=== PATIENT | female | born 1975 | race Two or more races ===

== ENCOUNTER 2024-04-02 11:26 | Outpatient (AMB) | payer OTHER, SELFPAY ==
--- NOTE | 2024-04-02 11:36 | A.OFFPC_ITS ---
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 Chain Offbearer Required: Yes Chain Offbearer Name: Daughter Accompanied by: Daughter Allergies Seasonal Allergies Allergy (Verified 04/02/24 11:57) Itchy Eyes Medication List - Last Reconciled 04/02/24 by Vianey Song, [facility] azelastine 0.05% 1 drp ophthalmic (eye) BID fluticasone propionate 50 mcg/actuation 2 sprays intranasal DAILY omeprazole 20 mg PO DAILY Tobacco use date assessed: 04/02/24 Dental Screening Dental Screen Date: 04/02/24 Did you have a dental visit in the last 12 months?: Yes Did you have a dental problem in the last 6 months where you did not have access to dental care?: No Was dental information given to patient?: Patient has dentist HPI HPI Comments History of Present Illness Details 48 y/o F with GERD, seasonal allergies, MDD, constipation, HPV Surgery: hysterectomy 2021 Health Maintenance: Colon thinks done about 1 year ago at [facility]. Unsure if it was normal or not. Mammo reports done at [facility] in [place] < 1 year ago. DEXA has never had one done. Will order today. Pap due, needs new referral. Placed today. Tdap today. 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 This started a long time ago . Alleviating factors include exercises. Exacerbating factors include constipation. Denies hx of kidney stones. Reports normal urination. Using meds in the past that helped in the past, but unsure of name. Admits miralax did provide benefit. [facility] Medical History (Updated 04/02/24 @ 13:32 by GLEN Knight-DAVIS) Acid reflux Surgical History (Updated 04/02/24 @ 11:50 by Lorie Bedoya [facility]) H/O: hysterectomy Family History (Updated 04/02/24 @ 11:53 by YOJANA Rose) Mother Diabetes Lung cancer Father High cholesterol Diabetes Family/Other High blood pressure High cholesterol Diabetes Social History Household Members: Family Both parents involved: No Caregiver staying overnight: No Housing: House Are you a primary primary care nurse practitioner to a significant other at home: No Do you presently have visiting nurse or other home services: No 75 years or older and lives alone: No Alcohol intake: current Alcohol intake frequency: holidays/special occasions only Alcohol type: wine and other Patient Tobacco Use Status: Never used Tobacco e-Cigarette/Vaping Use: Never Used Second Hand Smoke Exposure: No service: No Current occupational status: employed Current occupation: [employer]i @ [email or web address]/ [employer] at [employer] Cognitive needs: No Hearing needs: No Vision needs: Yes Questionnaire PHQ-9 Over the last 2 weeks, how often have you been bothered by any of the following problems? 1. Little interest or pleasure in doing things: not at all 2. Feeling down, depressed, or hopeless: not at all 3. Trouble falling or staying asleep, or sleeping too much: more than half the days 4. Feeling tired or having little energy: more than half the days 5. Poor appetite or overeating: several days 6. Feeling bad about yourself - or that you are a failure or have let yourself or your family down: not at all 7. Trouble concentrating on things, such as reading the newspaper or watching television: several days 8. Moving or speaking so slowly that other people could have noticed. Or the opposite - being so fidgety or restless that you have been moving around a lot more than usual: not at all 9. Thoughts that you would be better off or of hurting yourself in some way: not at all Total score: 6 Depression Screening Interpretation: Positive Depression Screening Follow-up: Existing condition Depression Screening Done: Yes 65063 - PHQ-9 Billing: Yes Source: Developed by Drs. Elmo Potts, Joanne Funes, Calos Gordon and colleagues, with an educational elan from [employer]. Thrive Questionnaire Date Thrive assessed: 04/02/24 I am a: Patient What is your living situation today?: I have a steady place to live Within the past 12 months, did the food you bought not last and you didn't have the money to get more?: Never true Within the past 12 months, did you worry whether your food would run out before you got money to buy more?: Never true Do you have trouble paying for medicines?: No Do you have trouble getting transportation to medical appointments?: No Do you have trouble paying your heating and electricity bill?: No Do you have trouble taking care of your child, family member or friend?: No Do you have trouble with day-to-day activities such as bathing, preparing meals, shopping, managing finances, etc.?: No Are you currently unemployed and looking for a job?: No Are you interested in more education?: No Please select the resources that you would like help with: None Currently or been in a relationship where the following occur: no concerns reported THRIVE Score: 0 AUDIT C Alcohol Use Questionnaire (AUDIT-C) 1. How often do you have a drink containing alcohol?: Monthly or less 2. How many drinks containing alcohol do you have on a typical day when you are drinking?: 1 or 2 3. How often do you have six or more drinks on one occasion?: Never Total Score: 1 Score Reviewed/Action Taken: Yes DAYANARA-7 AMB Questionnaire DAYANARA-7 Date DAYANARA - 7 assessed: 04/02/24 Feeling nervous, anxious, or on edge: 0 = Not at all Not being able to stop or control worryin = Not at all Worrying too much about different things: 0 = Not at all Trouble relaxin = Several days Being so restless that it is hard to sit still: 0 = Not at all Becoming easily annoyed or irritable: 0 = Not at all Feeling afraid as if something awful might happen: 0 = Not at all Total DAYANARA-7 score (0-4 normal; 5-9 mild; 10-14 moderate; 15-21 severe): 1 Source: Developed by Drs. Elmo Potts, Joanne Funes, Calos Gordon and colleagues, with an educational elan from [employer]. DAYANARA-7 Assessment Billing DAYANARA-7 Assessment Tool: DAYANARA-7 Assessment 53746 Review of Systems Const Details: Constitutional: Denies fever. Skin: Denies rash. Eye: Denies eye pain. ENMT: Denies sore throat Respiratory: Denies shortness of breath and cough. Gastrointestinal: Denies nausea, vomiting Cardiovascular: Denies chest pain and syncope. Genitourinary: Denies dysuria. Musculoskeletal: Denies extremity pain. Neurologic: Denies confusion, and weakness. Psychiatric: Denies suicidal thoughts and substance abuse. Allergy/ Immunologic: Denies impaired immunity. Physical exam (Primary Care) Vital Signs: Last Vital Signs Temp 97.5 F 04/02/24 11:37 Pulse 67 04/02/24 11:37 Resp 14 04/02/24 11:37 BP 126/64 04/02/24 11:37 Pulse Ox 99 04/02/24 11:37 Oxygen Delivery Method Room Air 04/02/24 11:37 BMI result Body Mass Index 28.9 BMI Assessment/Plan discussion: High BMI High, discussed plan: lifestyle Tobacco/Smoking Status: Tobacco use Status Tobacco use date assessed 04/02/24 04/02/24 11:54 Patient Tobacco Use Status Never used Tobacco 04/02/24 11:54 e-Cigarette/Vaping Use Never Used 04/02/24 11:54 PHQ-9: PHQ-9 Score PHQ-9: Total score 6 04/02/24 12:38 Depression Screening Interpretation: Positive Depression Screening Follow-up: Existing condition Thrive Assessment: Date of Thrive Assessment Date Thrive assessed 04/02/24 04/02/24 11:54 Currently or been in a relationship where the following occur: no concerns reported Advance Care Planning discussion: Exists, not on file Date of discussion: 04/02/24 Who was present: Self and daughter Forms completed: Health Care Proxy and MOLST Time spent: 1-15 minutes, not on file Actual minutes spent: 5 Did not discuss due to Cultural/Spiritual beliefs: Yes Const Other: General: Well developed, well nourished, in no acute distress. Appears stated age. Accompanied by daughter who helps with language barrier Head: Normocephalic, atraumatic. Eyes: Pupils are equal, round and reactive to light and accommodation. Conjunctivae are clear. Vision grossly normal. Ears: TMs with mild congestion bilat, EACS WNL Nose: Patent, without discharge. Turbinates pale and edematous bilat Mouth: There are no ulcers or lesions noted. No inflammation, no plaques nor exudates. Postnasal drip Neck: Supple, no adenopathy or thyromegaly. Lungs: Clear to auscultation bilaterally. No rales, rhonchi or wheeze noted. Good air flow in all siu. Heart: Regular rate and rhythm. No murmurs, click, rubs or gallops are noted. Abdomen: Bowel sounds present in all quadrants. The abdomen is soft,with no masses or organomegaly noted. No hernias are noted. Tender without rebound 2 left lower quadrant Musculoskeletal: Joints are nontender, without swelling, redness, or effusions. Range of motion is observed to be normal. Pulses: Peripheral pulses are equal and palpable bilaterally. Spinal exam within normal limits, CVAT bilat negative Extremities: No clubbing, cyanosis nor edema is noted. hairless lower ext half way down lower legs bilat Neurologic: Gait and station normal. Cranial Nerves 2-12 intact. Motor strength grossly symmetrical and intact. No sensory loss. Balance normal. Skin: No rashes, ulcers, or lesions noted. Turgor is good. Skin color is good. Hair and nails are without abnormalities. Psych: Normal eye contact, affect and mood appropriate, and normal interactions. Patient is alert and appropriate to context. Extremities: No clubbing, cyanosis or edema. Immunizations Boostrix Tdap 2.5 Lf unit-8 mcg-5 Lf/0.5 mL intramuscular syringe Performing Provider: JAYASHREE Knight Performing Location: 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 Code(s): E89.40 - Asymptomatic postprocedural ovarian failure; Z90.710 - Acquired absence of both cervix and uterus (3) Laboratory exam ordered as part of routine general medical examination: Code(s): Z00.00 - Encounter for general adult medical examination without abnormal findings (4) Seasonal allergies: Comment: Refill sent in on his saline, Flonase. New prescription for Zyrtec. Code(s): J30.2 - Other seasonal allergic rhinitis (5) BMI 29.0-29.9,adult: Comment: Lifestyle modifications. Code(s): Z68.29 - Body mass index [BMI] 29.0-29.9, adult (6) Constipation: Comment: The constipation is what seems to be causing her back pain, left lower quadrant pain. She has successfully used MiraLax in the past. I have reordered this. One capful mixed with 8 oz of fluid to be taken at bedtime. Titrate to effect. Decrease if diarrhea. If abdominal pain or back pain return after the constipation is treated advised that she return to the office for further evaluation and treatment. Code(s): K59.00 - Constipation, unspecified Qualifiers: Constipation type: slow transit constipation Qualified Code(s): K59.01 - Slow transit constipation (7) Acid reflux: Comment: Was well controlled on omeprazole. New prescription has been sent for omeprazole 20 mg p.o. daily. Code(s): K21.9 - Gastro-esophageal reflux disease without esophagitis Qualifiers: Esophagitis presence: without esophagitis Qualified Code(s): K21.9 - Gastro-esophageal reflux disease without esophagitis (8) PVD (peripheral vascular disease): Comment: based on clinical exam of hairless BLE, skin intact, monitor skin integrity. Normal Pedal pulses. BP at goal w/o meds. Check lipid profile. Code(s): I73.9 - Peripheral vascular disease, unspecified Orders: Orders Hemoglobin A1c Today E89.40 - Asymptomatic postprocedural ovarian failure, Z00.00 - Encounter for general adult medical examination without abnormal findings, Z90.710 - Acquired absence of both cervix and uterus Microalbumin, Random (w Creat) Today E89.40 - Asymptomatic postprocedural ovarian failure, Z00.00 - Encounter for general adult medical examination without abnormal findings, Z90.710 - Acquired absence of both cervix and uterus TDaP Immunization Today Z23 - Encounter for immunization XR DEXA appendicular skeleton Today E89.40 - Asymptomatic postprocedural ovarian failure, Z90.710 - Acquired absence of both cervix and uterus Lipid Panel Today E89.40 - Asymptomatic postprocedural ovarian failure, Z00.00 - Encounter for general adult medical examination without abnormal findings, Z90.710 - Acquired absence of both cervix and uterus Comprehensive [place]. Panel Fast Today E89.40 - Asymptomatic postprocedural ovarian failure, Z00.00 - Encounter for general adult medical examination without abnormal findings, Z90.710 - Acquired absence of both cervix and uterus TSH reflex Free T4 Today E89.40 - Asymptomatic postprocedural ovarian failure, Z00.00 - Encounter for general adult medical examination without abnormal findings, Z90.710 - Acquired absence of both cervix and uterus Vitamin D 1,25 dihydroxy Today E89.40 - Asymptomatic postprocedural ovarian failure, Z00.00 - Encounter for general adult medical examination without abnormal findings, Z90.710 - Acquired absence of both cervix and uterus Referrals [facility] Referral Z12.4 - Encounter for screening for malignant neoplasm of cervix Medications: New omeprazole 20 mg PO DAILY 90 caps 1RF azelastine 0.05% 1 drp ophthalmic (eye) BID 6 mL 4RF fluticasone propionate 50 mcg/actuation administer into each nostril 2 sprays intranasal DAILY 16 grams 6RF cetirizine (Allergy Relief (cetirizine)) 10 mg PO DAILY PRN 90 tabs 1RF allergy symptoms polyethylene glycol 3350 (Miralax) 17 grams PO DAILY 119 grams 8RF Patient Instructions: Health screenings for women You should visit your health care provider from time to time, even if you are healthy. The purpose of these visits is to: Screen for medical issues Assess your risk for future medical problems Encourage a healthy lifestyle Update vaccinations and other preventive care services Help you get to know your provider in case of an illness Information Even if you feel fine, you should still see your provider for regular checkups. These visits can help you avoid problems in the future. For example, the only way to find out if you have high blood pressure is to have it checked regularly. High blood sugar and high cholesterol levels also may not have any symptoms in the early stages. A simple blood test can check for these conditions. There are specific times when you should see your provider or receive specific health screenings. The [place] Preventive Services Task Force publishes a list of recommended screenings. Below are screening guidelines for women ages 18 to 39. BLOOD PRESSURE SCREENING Your blood pressure should be checked at least once every 3 to 5 years if: Your blood pressure is in the normal range (top number less than 120 mm Hg and bottom number less than 80 mm Hg) You don't have risk factors for high blood pressure Ask your provider if you need your blood pressure checked more often if: The top number is 120 to 129 mm Hg or the bottom number is 70 to 79 mm Hg You have diabetes, heart disease, kidney problems, are overweight, or have certain other health conditions You have a first-degree relative with high blood pressure You are Black You had high blood pressure during a If the top number is 130 mm Hg or greater or the bottom number is 80 mm Hg or greater, this is considered stage 1 hypertension. Schedule an appointment with your provider to learn how you can reduce your blood pressure. Watch for blood pressure screenings in your area. Ask your provider if you can stop in to have your blood pressure checked. BREAST CANCER SCREENING Experts do not agree about the benefits of breast self-exams in finding breast cancer or saving lives. Talk to your provider about what is best for you. A screening mammogram is not recommended for most women under age 40. Your provider may discuss and recommend mammograms, MRI scans, or ultrasounds if you have an increased risk for breast cancer, such as: A mother or sister who had breast cancer at a young age (most often starting screening earlier than the age the close relative was diagnosed) You carry a high-risk genetic marker CERVICAL CANCER SCREENING Cervical cancer screening should start at age 21 years unless your provider advises otherwise. After the first test: Women ages 21 through 29 should have a Pap test every 3 years. Exoprts do not agree on whether HPV testing is recommended for this age group. Women ages 30 through 65 should be screened with either a Pap test every 3 years or the HPV test every 5 years or both tests every 5 years (called cotesting ). Women who have been treated for precancer (cervical dysplasia) should continue to have Pap tests for 20 years after treatment or until age 65, whichever is longer. If you have had your uterus and cervix removed (total hysterectomy), and you have not been diagnosed with cervical cancer or precancer (high grade cervical neoplasia), you do not need cervical cancer screening. CHOLESTEROL SCREENING Cholesterol screening should begin at: Age 45 for women with no known risk factors for coronary heart disease Age 20 for women with known risk factors for coronary heart disease Repeat cholesterol screening should take place: Every 5 years for women with normal cholesterol levels More often if changes occur in lifestyle (including weight gain and diet) More often if you have diabetes, heart disease, kidney problems, or certain other conditions DIABETES SCREENING You should be screened for diabetes starting at age 35 and then repeated every 3 years if you have no risk factors for diabetes. Screening may need to start earlier and be repeated more often if you have other risk factors for diabetes, such as: You have a first degree relative with diabetes. You are overweight or have obesity. You have high blood pressure, prediabetes, or a history of heart disease. Screening for diabetes should be done if you are planning to become and you are overweight and have other risk factors such as high blood pressure. DENTAL EXAM Go to the dentist once or twice every year for an exam and cleaning. Your dentist will evaluate if you need more frequent visits. EYE EXAM Have an eye exam every 5 to 10 years before age 40. If you have vision problems, have an eye exam every 2 years or more often if recommended by your provider. You should have an eye exam that includes an examination of your retina (back of your eye) at least every year if you have diabetes. IMMUNIZATIONS Commonly needed vaccines include: Flu shot: get one every year. COVID-19 vaccine: ask your provider what is best for you. Tetanus-diphtheria and acellular pertussis (Tdap) vaccine: have one at or after age 19 as one of your tetanus-diphtheria vaccines if you did not receive it as an adolescent. Tetanus-diphtheria: have a booster (or Tdap) every 10 years. Varicella vaccine: receive 2 doses if you never had chickenpox or the varicella vaccine. Hepatitis B vaccine: receive 2, 3, or 4 doses, depending on your exact circumstances. Measles, mumps, and rubella (MMR) vaccine: receive 1 to 2 doses if you are not already immune to MMR. Your provider can tell you if you are immune. Ask your provider about the human papillomavirus (HPV) vaccine if: You have not received the HPV vaccine in the past You have not completed the full vaccine series (you should catch up on this shot) Ask your provider if you should receive other immunizations if you have certain health problems that increase your risk for some diseases such as pneumonia. INFECTIOUS DISEASE SCREENING Women who are sexually active should be screened for chlamydia and gonorrhea up until age 25. Women 25 years and older should be screened for chlamydia and gonorrhea if at high risk. Screening for hepatitis C: All adults ages 18 to 79 should get a one-time test for hepatitis C. people should be screened at every . Screening for human immunodeficiency virus (HIV): All people ages 15 to 65 should get a one-time test for HIV. Depending on your lifestyle and medical history, you may also need to be screened for infections such as syphilis and HIV, as well as other infections. PHYSICAL EXAM All adults should visit their provider from time to time, even if they are healthy. The purpose of these visits is to: Screen for disease Assess your risk of future medical problems Encourage a healthy lifestyle Update your vaccinations and other preventive care services Maintain a relationship with a provider in case of an illness Your height, weight, and BMI should be checked at every exam. During your exam, your provider may ask you about: Depression and anxiety Diet and exercise Alcohol and tobacco use Safety issues, such as using seat belts, smoke detectors, and intimate partner violence Your medicines and risk for interactions SKIN SELF-EXAM Your provider may check your skin for signs of skin cancer, especially if you're at high risk, such as if you: Have had skin cancer before Have close relatives with skin cancer Have a weakened immune system OTHER SCREENING Talk with your provider about colon cancer screening if you have a strong family history of colon cancer or polyps, or if you have had inflammatory bowel disease or polyps yourself. Routine bone density screening of women under 40 is not recommended. Review Patient declined Mammogram: 04/02/24 Patient declined Colonoscopy: 04/02/24 Coding Level of Care Code New Pt Prev Care 40-64y(31576) Diagnoses Encounter for general adult medical examination without abnormal findings Z00.00 Post hysterectomy menopause E89.40; Z90.710 Laboratory exam ordered as part of routine general medical examination Z00.00 Seasonal allergies J30.2 BMI 29.0-29.9,adult Z68.29 Slow transit constipation K59.01 Constipation type: slow transit constipation Gastroesophageal reflux disease without esophagitis K21.9 Esophagitis presence: without esophagitis PVD (peripheral vascular disease) I73.9 Additional Codes DAYANARA-7 Assessment Billing - DAYANARA-7 Assessment Tool: DAYANARA-7 Assessment 95680 ([id number]) Vital Signs *Quality* - Advance Care Planning discussion: Exists, not on file ([id number]) Vital Signs *Quality* - Time spent: 1-15 minutes, not on file ([id number]) Vital Signs *Quality* - Did not discuss due to Cultural/Spiritual beliefs: Yes ([id number])
[2024-04-02 11:37] VITALS: BP 126/64; PULSE 67; RESP 14; TEMP 36.4; O2SAT 99; BMI 28.9
== END 2024-04-02 12:57 | disposition home or self-care (01) ==
PROVIDERS: Visit Provider Nurse Practitioner Family
DX: Z00.00 Encounter for general adult medical examination without abnormal findings (principal); E89.40 Asymptomatic postprocedural ovarian failure; I73.9 Peripheral vascular disease, unspecified; Z23 Encounter for immunization; Z68.29 Body mass index [BMI] 29.0-29.9, adult; Z90.710 Acquired absence of both cervix and uterus; J30.2 Other seasonal allergic rhinitis; K59.01 Slow transit constipation; K21.9 Gastro-esophageal reflux disease without esophagitis
CPT/HCPCS: 1124F; 90471; 90715; 99386

== ENCOUNTER 2024-04-02 12:35 | Outpatient (REF) | payer OTHER, SELFPAY ==
[2024-04-02 15:16] LABS: Estimated Average Glucose 114 mg/dL; Hemoglobin A1c % 5.6 % (<6.0)
[2024-04-02 15:31] LABS: Creatinine Urine 86.76 mg/dL; Microalbum/Creatinine Ratio Ur 6.9 ug/mg cr (<30)
[2024-04-02 15:40] LABS: Alanine Aminotransferase 23 U/L (0-31); Albumin Level 4.6 g/dL (3.5-5.0); Alkaline Phosphatase 62 U/L (39-117); Anion Gap 16 (12-20); Aspartate Amino Transferase 23 U/L (5-31); Bilirubin Total 0.5 mg/dL (0.0-1.0); Blood Urea Nitrogen 12 mg/dL (9-16); Calcium 9.8 mg/dL (8.4-10.2); Carbon Dioxide 26 mmol/L (22-29); Chloride 104 mmol/L (96-108); Cholesterol 233 mg/dL (<200); Estimated Glomerular Filt Rate > 60; Glucose Fasting 80 mg/dL (60-99); HDL Cholesterol 58 mg/dL (>40); LDL Cholesterol Calculated 143 mg/dL (<100); Sodium 142 mmol/L (135-145); Total Protein 8.6 g/dL (6.5-8.0); Triglycerides 163 mg/dL (<150)
[2024-04-02 15:47] LABS: TSH reflex Free T4 0.58 uIU/mL (0.32-4.0)
[2024-04-07 14:19] LABS: VITAMIN D (1,25 OH) D3 37 pg/mL; Vit D (1,25-Dihydroxy) Total 37 pg/mL (18-72); Vitamin D (1,25 OH) D2 <8 pg/mL
== END 2024-04-02 12:36 | disposition home or self-care (01) ==
LOC: HO.WFDLDS 12:35
PROVIDERS: Visit Provider Nurse Practitioner Family
DX: Z00.00 Encounter for general adult medical examination without abnormal findings (principal); Z13.6 Encounter for screening for cardiovascular disorders; E89.40 Asymptomatic postprocedural ovarian failure; Z90.710 Acquired absence of both cervix and uterus
CPT/HCPCS: 36415; 80053; 80061; 82043; 82570; 82652; 83036; 84443

== ENCOUNTER 2024-04-07 10:46 | Outpatient (REF) | payer OTHER, SELFPAY ==
--- NOTE | ~2024-04-07 | MM_ITS ---
EXAMINATION: BONE DENSITOMETRY CLINICAL INDICATION: Asymptomatic menopausal state. COMPARISON: This is the patient's baseline examination. TECHNIQUE: Using a [employer] DXA System (software version: 13.1) manufactured by [employer], dual-energy x-ray absorptiometry was performed of the lumbar spine and left hip. The images are of good technical quality. Summary results are attached. FINDINGS: LEFT FEMUR, NECK: BMD 1.053 g/cm2, Z-score 0.9, T-score 0.1, normal. LEFT FEMUR, TOTAL: BMD 1.084 g/cm2, Z-score 1.0, T-score 0.6, normal. AP SPINE L1-L4: BMD 1.088 g/cm2, Z-score -0.4, T-score -0.8, normal. IDENTIFIED RISK FACTORS: Menopause, hysterectomy, bilateral oophorectomy. HISTORY OF FRACTURE: None listed. MEDICATIONS: None listed. MM/XR DEXA axial skeleton IMPRESSION: 1. DIAGNOSIS: Normal bone density based on the lowest T-score value of -0.8 in the lumbar spine applying World Health Organization criteria. 2. 10-YEAR FRACTURE RISK PREDICTION, FRAX: According to the guidelines, FRAX calculation should only be performed on patients in the osteopenia bone density category. Therefore, FRAX was not performed on this patient. 3. Treatment Recommendations: NOF guidelines recommend consideration for treatment in postmenopausal women and men age 50 and older presenting with the following: -A hip or vertebral (clinical or morphometric) fracture. -T-score less than or equal to -2.5 at the femoral neck or spine after appropriate evaluation to exclude secondary causes. -Low bone mass at the hip or spine and a 10-year fracture probability by FRAX of greater than or equal to 3% for hip fracture or greater than or equal to 20% for major osteoporotic fracture based on the [place] adapted WHO algorithm. 4. Other Recommendations: All treatment decisions require clinical judgment and consideration of individual patient factors, including patient preferences, comorbidities, previous drug use, risk factors not captured in the FRAX model (e.g. frailty, falls, vitamin D deficiency, increased bone turnover, interval significant decline in bone density) and possible under or overestimation of fracture risk by FRAX. FUTURE SCAN RECOMMENDATION: People with diagnosed cases of osteoporosis or at high risk for fracture should have regular bone mineral density tests. For patients eligible for Medicare, routine testing is allowed once every 2 years. The testing frequency can be increased to one year for patients who have rapidly progressing disease, those who are receiving or discontinuing medical therapy to restore bone mass, or have additional risk factors.
== END 2024-04-07 10:47 | disposition home or self-care (01) ==
LOC: HO.MAMMO 10:46
PROVIDERS: PCP Nurse Practitioner Family; Visit Provider Nurse Practitioner Family
DX: E89.40 Asymptomatic postprocedural ovarian failure (principal); Z90.710 Acquired absence of both cervix and uterus; Z13.820 Encounter for screening for osteoporosis; Z78.0 Asymptomatic menopausal state
CPT/HCPCS: 77080

== ENCOUNTER 2024-06-04 09:55 | Outpatient (AMB) | payer OTHER, SELFPAY ==
[2024-06-04 09:59] VITALS: BP 126/70; BMI 29.3
--- NOTE | 2024-06-04 09:59 | A.OFFVIS_ITS ---
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 Present Information Interpreted: clinical only Gift Shop Clerk: Gift Shop Clerk Present Allergies Seasonal Allergies Allergy (Verified 06/04/24 10:00) Itchy Eyes Medication List - Last Reconciled 06/04/24 by Priti Avelar CNM atorvastatin 40 mg PO BEDTIME azelastine 0.05% 1 drp ophthalmic (eye) BID cetirizine (Allergy Relief (cetirizine)) 10 mg PO DAILY PRN fluticasone propionate 50 mcg/actuation 2 sprays intranasal DAILY omeprazole 20 mg PO DAILY polyethylene glycol 3350 (Miralax) 17 grams PO DAILY Is last menstrual period known: No Do you need a note to return to daycare/school/sports/work: No HPI HPI 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 Her history is a little unclear in that she said that the hysterectomy was done to prevent cancer she says she did have bleeding before having the hysterectomy. She said her last Pap smear was 6-7 months ago but she does not have records but her primary referred her here for an annual exam and Pap smear as she was due. We will do the Pap smear today but also request records for the reason of the hysterectomy for clarity.. Her children were born here she is from [facility] [place] [facility] most of her family's in this country she works at [employer] but only 2 days during the week in the summer and she is helping care for her 83-year-old father. Her mother of lung cancer 2 years ago. She says the constipation and pain she had is a little bit better with the MiraLax. [facility] Medical History (Updated 06/04/24 @ 10:08 by Priti Avelar CNM) Acid reflux Surgical History (Updated 06/04/24 @ 10:34 by Priti Avelar CNM) H/O: hysterectomy Family History Mother Diabetes Lung cancer Father High cholesterol Diabetes Family/Other High blood pressure High cholesterol Diabetes Social History Household Members: Family Both parents involved: No Caregiver staying overnight: No Housing: House Are you a primary career development consultant to a significant other at home: No Do you presently have visiting nurse or other home services: No 75 years or older and lives alone: No Alcohol intake: current Alcohol intake frequency: holidays/special occasions only Alcohol type: wine and other Patient Tobacco Use Status: Never used Tobacco e-Cigarette/Vaping Use: Never Used Second Hand Smoke Exposure: No service: No Current occupational status: employed 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 [employer] Cognitive needs: No Hearing needs: No Vision needs: Yes Female Reproductive History Menstrual Age of Menarche: 9 control method: other Menopause type: surgical Total pregnancies: 3 Full term: 3 History of abnormal pap smear: No (previous pap unknown) Physical Exam Vital Signs: Last Vital Signs BP 126/70 06/04/24 09:59 BMI result Body Mass Index 29.3 Const General: healthy appearing, comfortable, no acute distress, well developed and alert Nutritional Appearance: average body habitus Orientation/consciousness: patient oriented x3 Limitations: no limitations HEENT Head: Yes normocephalic Neck Neck: Yes normal visual inspection Thyroid: Thyroid normal Chest Chest palpation & inspection: normal inspection of the chest Breast/axilla inspection: normal inspection of the breasts and normal inspection of the axillae Breast/axilla palpation: normal palpation of the breasts and normal palpation of the axillae Resp Effort & Inspection: normal respiratory effort GI Inspection: Yes normal to inspection, No Abdominal wall edema and No distended Palpation (GI): Soft to palpation and nontender Other: Some descensus of anterior vaginal wall. Cervix and uterus are surgically absent vagina is pink and moist and healthy appearing Pap taken as well as cult ures for thoroughness. Patient was able to recreate a very good Kegel and I instructed her on doing several with increasing strength and length of time and she was able to sustain a contraction for up to a count of 5 very well I recommend she do them several times a day. External Female Exam: normal external appearance and normal appearance of the urethra Speculum Exam - Vagina: normal appearance of the vagina and normal vaginal discharge Bimanual Exam- Adnexa, other: normal adnexae, no masses, normal and No adnexal tenderness Neuro General: patient oriented x3 Assessment & Plan Assessment & Plan (1) Post hysterectomy menopause: Comment: DEXA ordered. Code(s): E89.40 - Asymptomatic postprocedural ovarian failure; Z90.710 - Acquired absence of both cervix and uterus Category: Medical (2) Cervical cancer screening: Code(s): Z12.4 - Encounter for screening for malignant neoplasm of cervix Category: Medical (3) H/O: hysterectomy: Comment: 2021 @ [facility], unclear why- records requested. Code(s): Z90.710 - Acquired absence of both cervix and uterus Category: Surgical (4) Well woman exam with routine gynecological exam: Code(s): Z01.419 - Encounter for gynecological examination (general) (routine) without abnormal findings Category: Medical Plan -----Discussed in this visit the following: healthy balanced diet, regular and consistent exercise, getting recommended health screens, doing the best she can for her particular health concerns, kegel exercises, pap smear screening and followup recommendations, mammography screening and SBE, normal changes in cycles in her life stage--- . Teaching done in detail about do Kegel exercises she was able to reproduce the exercise very well with increasing strength each time and holding the contraction longer. I recommend she do them several times a day with increasing strength in length of time to increase her muscle tone even though she does not have a uterus she does have some descensus of her anterior vaginal wall and I explained that this is to prevent issues with incontinence. We will request records from [facility] for the reason of her is there some lack of clarity as to the reason in it would make a difference how often she needed future Paps.. RTC 1 year she had her mammogram about 5 months ago she says. Coding Level of Care Code New Pt Prev Care 40-64y(22256) Diagnoses Post hysterectomy menopause E89.40; Z90.710 Cervical cancer screening Z12.4 H/O: hysterectomy Z90.710 Well woman exam with routine gynecological exam Z01.419
== END 2024-06-04 10:34 | disposition home or self-care (01) ==
LOC: HO.HWSM 09:55
PROVIDERS: PCP Nurse Practitioner Family; Visit Provider Advanced Practice Midwife
DX: Z01.419 Encounter for gynecological examination (general) (routine) without abnormal findings (principal); E89.40 Asymptomatic postprocedural ovarian failure; Z90.710 Acquired absence of both cervix and uterus
CPT/HCPCS: 99386

== ENCOUNTER 2024-06-04 09:55 | Outpatient (REF) | payer OTHER, SELFPAY | END 2024-06-04 09:56 | disposition home or self-care (01) | LOC: HO.LNP 09:55 | PROVIDERS: PCP Nurse Practitioner Family; Visit Provider Advanced Practice Midwife | DX: Z01.419 Encounter for gynecological examination (general) (routine) without abnormal findings (principal) | CPT/HCPCS: 99386 ==

== ENCOUNTER 2024-06-04 10:50 | Outpatient (REF) | payer OTHER, SELFPAY ==
[2024-06-05 03:28] LABS: CT PCR NOT DETECTED (Not Detect.); NG PCR NOT DETECTED (Not Detect.)
[2024-06-05 10:48] LABS: Bacterial Vaginosis PCR POSITIVE (Negative); Candida Group PCR NOT DETECTED (Not Detect); Candida glab krusei PCR NOT DETECTED (Not Detect); Trichomonas vaginalis PCR NOT DETECTED (Not Detect)
[2024-06-09 09:08] LABS: HPV mRNA E6/E7 Not Detected (Not Detected)
== END 2024-06-04 10:51 | disposition home or self-care (01) ==
LOC: HO.LAB 10:50
PROVIDERS: Visit Provider Advanced Practice Midwife
DX: Z01.419 Encounter for gynecological examination (general) (routine) without abnormal findings (principal); N89.8 Other specified noninflammatory disorders of vagina; Z11.3 Encounter for screening for infections with a predominantly sexual mode of transmission; Z90.710 Acquired absence of both cervix and uterus
CPT/HCPCS: 0352U; 36415; 87491; 87591; 87624; 88175

== ENCOUNTER 2024-08-17 08:33 | Outpatient (AMB) | payer OTHER, SELFPAY ==
--- NOTE | 2024-08-17 08:36 | A.OFFPC_ITS ---
Vital Signs 08/17/24 08:40 Height 5 ft Weight 150 lb 2 oz BMI 29.3 BP 124/72 Blood Pressure Location Rt brachial Position Sitting Respiration 14 Pulse 58 Pulse Source Pulse Oximeter Pulse Oximetry (%) 100 Oxygen Delivery Method Room Air Intake Visit Reasons: Follow up Intake Note: follow up and patient complaining of cough when taking atorvastatin. Allergies Seasonal Allergies Allergy (Verified 08/17/24 08:45) Itchy Eyes atorvastatin Adverse Reaction (Unknown, Verified 08/17/24 08:48) Insomnia Medication List - Last Reconciled 08/17/24 by Vianey Song, [facility]- azelastine 0.05% 1 drp ophthalmic (eye) BID cetirizine (Allergy Relief (cetirizine)) 10 mg PO DAILY PRN fluticasone propionate 50 mcg/actuation 2 sprays intranasal DAILY metronidazole 500 mg PO BID 7 days omeprazole 20 mg PO DAILY polyethylene glycol 3350 (Miralax) 17 grams PO DAILY Tobacco use date assessed: 04/02/24 Dental Screening Dental Screen Date: 04/02/24 HPI HPI Comments History of Present Illness Details 48 y/o F with GERD, seasonal allergies, MDD, constipation, HPV, PVD, hyperlipidemia Surgery: hysterectomy 2021 Health Maintenance: Colon thinks done about 1 year ago at [facility]. Unsure if it was normal or not. Mammo reports done at [facility] in [place] < 1 year ago. DEXA has never had one done. Will order today. Pap 05/2024 WNL Tdap 03/2024 Specialists: DIRECTOR INBOUND SALES Here today for f/u of abd pain & lab review. Dtr on the phone to help w/ language barrier. Offered our drive man services, declined. Labs 03/2024 WNL except hyperlipidemia LDL > 100, she was started on atorvastatin at last visit but she stopped taking as she said it caused insomnia. Only took for about 1 week. She would like a repeat of labs today before starting another medication. Cough 2 weeks ago, + sore throat, mouth feels dry. Denies fever, chills, ear pain, chest pain, sob. Used Tussin @ home, with short lived relief. At last visit, recommended to restart Miralax for constipation. This has helped. Having left lower back pain, has been there for a while now . It really is not bothersome but worries about her kidney health. Reminded labs done @ last visit and renal function WNL. Exam: Awake alert NAD scleras nonicteric bilat TM intact, + congestion bilat pharynx WNL, shotty ac/pc adenopathy bilat, MMM RRR LS scattered faint ins/exp wheeze throughout, dry cough during exam w/o distress Abd soft, nontender, normoactive BS NO CVAT bilat Unable to reproduce pain in left back/hip on exam BLE hairless lower ext half way down lower legs bilat Plan Cont miralax & all prescribed medications Check lipid profile today, see below. This is improved however LDL remains > 100. Will start Zetia. Start diclofenac QID prn to back as needed. Start albuterol and prednisone for wheezing today. Edu on reasons to fu Asked she schedule an appt when she thinks her lymphnodes are swollen when she is not sick, as today the adenopathy is expected and not concerning RTO in March for CPE, sooner PRN This note is constructed using voice recognition software. While every effort has been made to ensure accuracy in nutritional assistant, still errors may have been included Sometimes, these errors may affect the content or meaning of the given sentence . Total time spent caring for the patient today was 30 minutes. This includes time spent before the visit reviewing the chart, time spent during the visit, and time spent after the visit on documentation [facility] Medical History (Updated 08/17/24 @ 09:04 by TARYN KnightP-) Acid reflux Surgical History (Updated 06/04/24 @ 10:34 by Priti Avelar CNM) H/O: hysterectomy Family History Mother Diabetes Lung cancer Father High cholesterol Diabetes Family/Other High blood pressure High cholesterol Diabetes Social History Household Members: Family Housing: House Are you a primary home care nurse to a significant other at home: No Do you presently have visiting nurse or other home services: No Alcohol intake: current Alcohol intake frequency: holidays/special occasions only Alcohol type: wine and other Patient Tobacco Use Status: Never used Tobacco e-Cigarette/Vaping Use: Never Used Second Hand Smoke Exposure: No service: No Current occupational status: employed 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 Elmo Potts, Joanne Funes, Calos Gordon and colleagues, with an educational elan from [employer]. Physical exam (Primary Care) Vital Signs: Last Vital Signs Pulse 58 08/17/24 08:40 Resp 14 08/17/24 08:40 BP 124/72 08/17/24 08:40 Pulse Ox 100 08/17/24 08:40 Oxygen Delivery Method Room Air 08/17/24 08:40 BMI result Body Mass Index 29.3 Tobacco/Smoking Status: Tobacco use Status Tobacco use date assessed 04/02/24 08/17/24 08:38 Patient Tobacco Use Status Never used Tobacco 08/17/24 08:38 e-Cigarette/Vaping Use Never Used 08/17/24 08:38 Thrive Assessment: Date of Thrive Assessment Date Thrive assessed 04/02/24 08/17/24 08:38 Results Reviewed Results Reviewed: RUN: 08/17/24 1207 PAGE 1 [facility] [address] [place] [id number] 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 Specimen Inquiry Name: Melina Gonsales Age/Sex: 48/F : 1975 Unit#: [id number] Attend Dr: Vianey Song DATA MANAGEMENT-BC Re08/17/24 Status: REG REF [facility] Disch: SPEC : [id number] JUAN DIEGO: 08/17/24 STATUS: COMP REQ : [id number] RECD: 08/17/24-[address]: Vianey Song [facility]- COMP: 08/17/24 ENTERED: 08/17/24 [facility] DR: ORDERED: CMP Fast, Lipid Panel Test Result Flag Reference Sodium 142 135-145 mmol/L Potassium 4.1 3.3-5.1 mmol/L CL 106 96-108 mmol/L CO2 28 22-29 mmol/L Gap 12 12-20 BUN 9 9-16 mg/dL Creat 0.57 0.5-1.4 mg/dL EGFR > 60 NOTE: For -[place] individuals, multiply the result by 1.210. Chronic Kidney Disease: Estimated GFR < 60 mL/min/1.73m2 Severe Kidney Disease: Estimated GFR < 15 mL/min/1.73m2 FBS 98 60-99 mg/dL CA 9.3 8.4-10.2 mg/dL Total Bili 0.3 0.0-1.0 mg/dL AST (GOT) 22 5-31 U/L ALT (GPT) 31 0-31 U/L Protein, Total 7.8 6.5-8.0 g/dL Alb 4.3 3.5-5.0 g/dL Triglyceride 150 H <150 mg/dL Desirable Triglyceride: less than 150 mg/dL Borderline High Triglyceride 150-199 mg/dL High Triglyceride: 200-499 mg/dL Very High Triglyceride: greater than or equal to 5OO mg/dL Cholesterol 192 <200 mg/dL Desirable Cholesterol: less than 200 mg/dL Borderline High Cholesterol: 200-239 mg/dL High Cholesterol: greater than 239 mg/dL LDL Calculated 113 H <100 mg/dL Desirable LDL: less than 100 mg/dL Near Optimal/Above Optimal LDL: 110-129 mg/dL Borderline High LDL: 130-159 mg/dL High LDL: 160-189 mg/dL Very High LDL: greater than or equal to 190 mg/dL HDL 49 >40 mg/dL Desirable HDL: greater than 40 mg/dL Note: This HDL assay may give artificially low results in patients with liver disease. Alk Phos 72 39-117 U/L END OF REPORT Assessment and Plan Assessment & Plan (1) Hyperlipidemia: Code(s): E78.5 - Hyperlipidemia, unspecified Qualifiers: Hyperlipidemia type: mixed hyperlipidemia Qualified Code(s): E78.2 - Mixed hyperlipidemia (2) Constipation: Comment: MiraLax One capful mixed with 8 oz of fluid to be taken at bedtime. Titrate to effect. Decrease if diarrhea. Code(s): K59.00 - Constipation, unspecified Qualifiers: Constipation type: slow transit constipation Qualified Code(s): K59.01 - Slow transit constipation (3) Wheezing-associated respiratory infection: Code(s): J98.8 - Other specified respiratory disorders (4) Low back pain: Code(s): M54.50 - Low back pain, unspecified Qualifiers: Back pain laterality: left Chronicity: chronic Sciatica presence: without sciatica Qualified Code(s): M54.50 - Low back pain, unspecified; G89.29 - Other chronic pain Orders: Orders Lipid Panel Today E78.5 - Hyperlipidemia, unspecified Medications: New albuterol sulfate 90 mcg/actuation 2 puffs inhalation Q4-6H PRN 8.5 grams 0RF shortness of breath or wheezing 30 days ezetimibe (Zetia) 10 mg PO DAILY 90 tabs 1RF diclofenac sodium 1% apply to single joint 2 grams topical QID PRN 100 grams 2RF pain prednisone 20 mg PO DAILY 5 tabs 0RF Discontinued metronidazole Take with food, Avoid alcohol and vinegar products Discontinued Reason: Patient Completed Course 500 mg PO BID 7 days 14 tabs 0RF Coding Level of Care Code Est Pt Level 4 (16428) Complex EM visit Add On G2211 Diagnoses Mixed hyperlipidemia E78.2 Hyperlipidemia type: mixed hyperlipidemia Slow transit constipation K59.01 Constipation type: slow transit constipation Wheezing-associated respiratory infection J98.8 Chronic left-sided low back pain without sciatica M54.50; G89.29 Back pain laterality: left Chronicity: chronic Sciatica presence: without sciatica
[2024-08-17 08:40] VITALS: BP 124/72; PULSE 58; RESP 14; O2SAT 100; BMI 29.3
== END 2024-08-17 09:02 | disposition home or self-care (01) ==
PROVIDERS: PCP Nurse Practitioner Family; Visit Provider Nurse Practitioner Family
DX: E78.2 Mixed hyperlipidemia (principal); K59.01 Slow transit constipation; J98.8 Other specified respiratory disorders; M54.50 Low back pain, unspecified; G89.29 Other chronic pain

== ENCOUNTER → 2024-08-17 08:33 | Outpatient (BNVA) | payer OTHER, SELFPAY | PROVIDERS: PCP Nurse Practitioner Family; Visit Provider Nurse Practitioner Family | DX: K59.01 Slow transit constipation (principal); E78.2 Mixed hyperlipidemia; J98.8 Other specified respiratory disorders; M54.50 Low back pain, unspecified; G89.29 Other chronic pain | CPT/HCPCS: 99212 ==

== ENCOUNTER 2024-08-17 09:06 | Outpatient (REF) | payer OTHER, SELFPAY ==
[2024-08-17 12:03] LABS: Alanine Aminotransferase 31 U/L (0-31); Albumin Level 4.3 g/dL (3.5-5.0); Alkaline Phosphatase 72 U/L (39-117); Anion Gap 12 (12-20); Aspartate Amino Transferase 22 U/L (5-31); Bilirubin Total 0.3 mg/dL (0.0-1.0); Blood Urea Nitrogen 9 mg/dL (9-16); Calcium 9.3 mg/dL (8.4-10.2); Carbon Dioxide 28 mmol/L (22-29); Chloride 106 mmol/L (96-108); Cholesterol 192 mg/dL (<200); Estimated Glomerular Filt Rate > 60; Glucose Fasting 98 mg/dL (60-99); HDL Cholesterol 49 mg/dL (>40); LDL Cholesterol Calculated 113 mg/dL (<100); Potassium 4.1 mmol/L (3.3-5.1); Sodium 142 mmol/L (135-145); Total Protein 7.8 g/dL (6.5-8.0); Triglycerides 150 mg/dL (<150)
== END 2024-08-17 09:07 | disposition home or self-care (01) ==
LOC: HO.WFDLDS 09:06
PROVIDERS: Visit Provider Nurse Practitioner Family
DX: I73.9 Peripheral vascular disease, unspecified (principal); E78.5 Hyperlipidemia, unspecified
CPT/HCPCS: 36415; 80053; 80061

== ENCOUNTER 2025-06-25 08:00 | Outpatient (AMB) | payer OTHER, SELFPAY ==
--- OUTSIDE RECORDS SUMMARY | 2025-06-25 08:03 | XMS_ITS | Clinical Summary ---
Author Organization [facility] Address [address] [place] [address] [address] [place] [address] Care Team Providers Care Child And Family Services Specialist Name Role Phone PcpCharles Unassigned Primary Care Provider U navailable Allergies Active Allergy Reactions Criticality Noted Date Comments Pollen Extract 09/03/2023 Other reaction(s): Pollen Sulfamethoxazole-Trimethop rim 05/18/2021 Medications No known medications Social History Tobacco Use Types Packs/Day Years Used Date Smoking Tobacco: Never Passive Smoke Exposure: Never Smokeless Tobacco: Never Tobacco Cessation:Counseling Given: Not Answered Alcohol Use Standard Drinks/Week Comments Never 0 (1 standard drink = 0.6 oz pur e alcohol) Comments Unknown Sex and Gender Information Value Date Recorded Sex Assigned at Female 09/03/2023 1:54 PM EDT Legal Sex Female 5:37 PM EDT Gender Identity Female 09/03/2023 1:54 PM EDT Sexual Orientation Straight 09/03/2023 1: 54 PM EDT Plan of Treatment Health Maintenance Due Date Last Done Comments CT Colonography 1973 Colonoscopy 1973 Colorectal Cancer Screening 1973 Depression Screening 1975 FIT DNA/Cologuard 1975 FIT 1975 FOBT 1975 HIV Screening 1975 SDOH Screening 1973 Sigmoidoscopy 1973 Disability Screening 1973 Alcohol/Substance Use Screening 1985 Family Planning (PISQ) 1988 Hepatitis C Screening 1991 Hepatitis B Vaccines (1 of 3 - 19+ 3-dose series) 1992 Pap Smear 1994 Cervical Cancer Screening 2003 HPV/Cotest 2003 Mammogram 2013 Pneumococcal Vaccine: 50+ Years (1 of 1 - PCV) 2023 Zoster Vaccines (1 of 2) 2023 COVID-19 Vaccine (4 - 2024-25 season) 2024 11/30/2021, 04/29/2021, 04/08/2021 Dental X-Ray: Bitewings 09/04/2024 09/03/20, 08/28/2022, 08/24/2022, Additional history exists Dental Oral Exam 09/10/2024 03/10/2024, 08/2023, 08/28/2022, Additional history exists Dental Prophylaxis 09/10/2024 03/10/2024, 1 , 08/28/2022, Additional history exists Tobacco Screening 03/10/2025 03/10/2024 Influenza Vaccine (#1) 2025 08/27/2011, 2010 Dental X-Ray: Full Mouth 08/29/2025 08/28/2022, 02/2018 DTaP/Tdap/Td Vaccines (4 - Td or Tdap) 04/02/2034 04/02/2024, 11/02/2021, 08/27/2011, Additional history exists RSV Patients and Patients Aged 60 years or older (1 - 1-dose 75+ series) 2048 HIB Vaccines Aged Out No longer eligi ble based on patient's age to complete this topic HPV Vaccines Aged Out No longer eligi ble based on patient's age to complete this topic Hepatitis A Vaccines Aged Out No long er eligible based on patient's age to complete this topic IPV Vaccines Aged Out No longer eligi ble based on patient's age to complete this topic Meningococcal B Vaccine Aged Out No l onger eligible based on patient's age to complete this topic Meningococcal Vaccine Aged Out No lamberto josh eligible based on patient's age to complete this topic RSV under 20 months Aged Out No longe r eligible based on patient's age to complete this topic Rotavirus Vaccines Aged Out No longer eligible based on patient's age to complete this topic Procedures Procedure Name Priority Date/Time Associated Diagnosis Comments Full PROPHYLAXIS - ADULT Routine 024 2:00 PM EDT PERIODIC ORAL EVALUATION - ESTABLISHED PATIENT Routine 03/10/2024 2:00 PM EDT BITEWINGS - 4 RADIOGRAPHIC IMAGES Routine 09/03/2023 2:00 PM EDT INTRAORAL - COMPLETE SERIES OF RADIOGRAPHIC IMAGES Routine 08/28/2022 12:00 AM EDT from Last 3 Months or Most Recently Relevant to Health Maintenance Insurance DENTAL - HSN PARTIAL (MEDICAID) Care Teams Child And Family Services Specialist Relationship Specialty Start Date End Date PcpCharles Unassigned PCP - General Family Medicine 03/25/23
--- OUTSIDE RECORDS SUMMARY | 2025-06-25 08:03 | XMS_ITS | Clinical Summary ---
Author Organization [facility] Address [address] [place] [phone] Phone Care Team Providers Care News Specialist Name Role Phone Zenia Rinaldi NP Primary Care Provider [phone] Allergies Active Allergy Reactions Criticality Noted Date Comments Sulfamethoxazole-Trimethoprim 2020 Medications OMEPRAZOLE ORAL Take 20 mg by mouth daily. Active acetaminophen (TYLENOL) 325 mg tablet Take 325 mg by mouth. 04/30/2022 Active ibuprofen (ADVIL,MOTRIN) 600 MG tablet Take 600 mg by mouth every 6 (six) hours. 04/30/2022 Active docusate sodium (COLACE) 100 MG capsule Take 100 mg by mouth. 04/30/2022 Active hydrocortisone 1 % cream APPLY THIN COAT TO AFFECTED AREA TWICE A DAY 02/14/2022 Active witch nidhi-glycerin (TUCKS) pad Place rectally as needed for pain (specific location in comments). Active fluticasone propionate (FLONASE) 50 mcg/actuation nasal spray 1 spray by Nasal route daily. Active Active Problems Problem Noted Date Diagnosed Date Perianal pain 05/14/2022 Assessment & Plan (05/14/2022 1:50 PM EDT): This is a 46-year-old [place] Citizen-speaking woman who presents for evaluation of a 1 year history of a posterior 6 o'clock position pimple that comes intermittently becomes inflamed and then pops and drains. She has had this happen twice this month but has only had a happen of handful of times in the past year. On my exam there are no abnormal lesions in the perianal region. There is some scar tissue located at the 6 o'clock position and I believe that this is probably where the pimple has been previously although is not present currently. 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 In order to further evaluate this the patient should be referred to a colorectal surgeon for colonoscopy and further evaluation to determine whether this is the etiology of the patient's discomfort. Patient currently has no discomfort. There is no indication for any general surgical intervention at this time. Patient should referred by the primary care doctor to a colorectal surgeon for further evaluation. Please call with questions thank you for this consultation. Family History Medical History Relation Comments Alzheimer's disease Father Lung cancer Mother Relation Status Comments Brother 1 Alive Brother 2 Alive Brother 3 Alive Brother 4 Alive Brother 5 Alive Brother 6 Alive Brother 7 Alive Brother 8 Alive Father Alive Mother Sister Alive Social History Tobacco Use Types Packs/Day Years Used Date Smoking Tobacco: Never Smokeless Tobacco: Never Tobacco Cessation:Counseling Given: Not Answered Alcohol Use Standard Drinks/Week Comments Not Currently 0 (1 standard drink = 0.6 oz pur e alcohol) Education Answer Date Recorded Are you interested in more education? Not on norma e 03/21/2023 Are you concerned about learning? Not on file 03/21/2023 No 03/21/2023 No 03/21/2023 Digital Access Answer Date Recorded No 04/19/2023 No 04/19/2023 No 04/19/2023 Reliable internet access at home? Not on file 04/19/2023 Device with a working camera? Not on file Intimate Partner Violence Answer Date R ecorded Are you denied basic needs s uch as food, clothing, or medical care? No 03/21/2023 In the past 12 months have y ou been in a relationship with a person who hurts, threatens, or tries to control you? No 03/21/2023 Are you denied basic needs s uch as food, clothing, or medical care? No 03/21/2023 In the past 12 months have y ou been in a relationship with a person who hurts, threatens, or tries to control you? 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 Not on file Not on f ile Last Filed Vital Signs Vital Sign Reading Time Taken Comments Blood Pressure 99/58 03/21/2023 2:25 PM EDT Pulse 58 03/21/2023 2:25 PM EDT Temperature 35.9 C (96.6 F) 03/21/2023 2:10 PM EDT Respiratory Rate 11 03/21/2023 2:25 PM EDT Oxygen Saturation 99% 03/21/2023 2:20 PM EDT Inhaled Oxygen Concentration - - Weight 63.5 kg (140 lb) 03/21/2023 12:48 PM EDT Height 152.4 cm (5') 03/21/2023 12:48 PM EDT Body Mass Index 27.34 03/21/2023 12:48 PM EDT Plan of Treatment Health Maintenance Due Date Last Done Comments DEPRESSION SCREENING 1985 HIV ONE-TIME SCREENING (18-6 5 YEARS) 1991 MAMMOGRAM 2013 COLOGUARD 2018 FIT TEST 2018 FOBT 2018 SIGMOIDOSCOPY 2018 VIRTUAL COLONOSCOPY 2018 Adult Td,Tdap Booster 08/27/2021 08/27/2011 , 07/11/2009, 02/03/1999 LIPID PANEL 09/18/2023 09/18/2018 PNEUMOCOCCAL VACCINES (50+ years) (1 of 1 - PCV) 2023 ZOSTER VACCINES (1 of 2) 2023 COVID-19 VACCINE (3 - 2023-2 5 season) 2024 04/29/2021, 04/08/2021 SCREENING FOR DIABETES 01/14/2027 01/14/2024 COLONOSCOPY 03/21/2033 03/21/2023 COLORECTAL CANCER SCREENING 03/21/2033 HEPATITIS C SCREENING Completed 11/23/2021 SMOKING STATUS SCREENING (On ce After 26 Yrs) Completed 03/21/2023 HEPATITIS A VACCINES Aged Out No long er eligible based on patient's age to complete this topic HIB VACCINES Aged Out No longer eligi ble based on patient's age to complete this topic MENINGOCOCCAL VACCINES (ACWY) Aged Out No longer eligible based on patient's age to complete this topic MENINGOCOCCAL VACCINES (B) Aged Out N o longer eligible based on patient's age to complete this topic Medical Devices Not on file Procedures Procedure Name Priority Date/Time Associated Diagnosis Comments ENDOSCOPY, COLON 03/21/2023 1:41 PM EDT from Last 3 Months or Most Recently Relevant to Health Maintenance Results * ENDOSCOPY, COLON (03/21/2023 1:41 PM EDT) Narrative Transcriptions Jhonathan Izaguirre MD - 03/21/2023 1:41 PM EDT [facility] Patient Name: Melina Gonsales Attending MD:: JHONATHAN IZAGUIRRE MD, , Procedure Date: 03/21/2023 1:41 PM Date of : 1975 Age: 47 Admit Type: Outpatient Gender: Female Room: [place] [address] Referring MD: Zenia Rinaldi Exam Type: Colonoscopy Indications: Screening for colorectal malignant neoplasm Medications: Propofol per Anesthesia Procedure: Informed consent was obtained from the patientafter discussion of the indications, limitations, alternatives, benefits, and risks of the procedure. Risks specifically discussed include but are not limited to medication reactions, missed lesions, bleeding, perforation, or the need for emergent surgery. Throughout the procedure, the patient's blood pressure, pulse, end-tidal CO2, and oxygensaturations were monitored continuously. The Olympus pediatric variable colonoscopePCF-[id number] #6 was introduced through the anus and advanced tothe cecum, identified by appendiceal orifice andileocecal valve. The colonoscopy was performed without difficulty. The patient tolerated the procedurewell. The quality of the bowel preparation was excellent. The quality of the bowel preparation was evaluated using the BBPS ([place] Bowel Preparation Scale)with scores of: Right Colon = 3, Transverse Colon = 3and Left Colon = 3 (entire mucosa seen well with no residual staining, small fragments of stool oropaque liquid). The total BBPS score equals 9. Anatomical landmarks were photographed. Complications: No immediate complications. Estimated blood loss: Minimal. Findings: The perianal and digital rectal examinations were normal. A 4 mm polyp was found in the ascending colon. The polyp was sessile. The polyp was removed with acold snare. Resection and retrieval were complete. Internal hemorrhoids were found duringretroflexion. The hemorrhoids were mild. The exam was otherwise normal throughout theexamined colon. Impression: - One 4 mm polyp in the ascending colon, removedwith a cold snare. Resected and retrieved. - Internal hemorrhoids. Recommendation: - Discharge patient to home. - Await pathology results. JHONATHAN IZAGUIRRE MD, 03/21/2023 2:04:28 PM This report has been signed electronically. Number of Addenda: 0 Note Initiated On: 03/21/2023 1:41 PM Procedure Code(s): --- Professional --- 25883, Colonoscopy, flexible; with removal of tumor(s), polyp(s), or other lesion(s) by snare technique --- Technical --- 17420, Colonoscopy, flexible; with removal of tumor(s), polyp(s), or other lesion(s) by snare technique Diagnosis Code(s): --- Professional --- Z12.11, Encounter for screening for malignantneoplasm of colon D12.2, Benign neoplasm of ascending colon K64.8, Other hemorrhoids --- Technical --- Z12.11, Encounter for screening for malignantneoplasm of colon D12.2, Benign neoplasm of ascending colon K64.8, Other hemorrhoids CPT copyright 2021 [employer]. All rights reserved. The codes documented in this report are preliminary and upon cold reduction roller reviewmay be revised to meet current compliance requirements. Procedure Date: 03/21/2023 1:41:35 PM [address] [place] [address] Zenia Goldberg [facility] PROCEDURE ORDERABLES F inal Result from Last 3 Months or Most Recently Relevant to Health Maintenance Insurance HEALTH SAFETY NET PARTIAL NON NSPG PCP [employer] [place] [employer] NET PARTIAL WELLSENSE NON NSPG PCP [employer] HEALTH SAFETY NET PARTIAL WELLSENSE NON NSPG PCP [employer] HEALTH SAFETY NET PARTIAL WELLSENSE NON NSPG PCP [employer] HEALTH SAFETY NET PARTIAL WELLSENSE NON NSPG PCP S[employer] HEALTH SAFETY NET PARTIAL WELLSENSE NON NSPG PCP [place] [employer] Care Teams News Specialist Relationship Specialty Start Date End Date Zenia Rinaldi NP [address] [place] [id number] PCP - General Family Medicine 01/12/22 Additional Source Comments The information contained in this document represents components of the legal health record. It is not the complete legal health record.[facility]
--- NOTE | 2025-06-25 08:04 | A.OFFPC_ITS ---
Vital Signs 06/25/25 08:11 Height 5 ft Weight 149 lb BMI 29.1 BP 122/70 Blood Pressure Location Lt brachial Position Sitting Respiration 12 Pulse 55 Pulse Source Pulse Oximeter Temp 97.2 F Temp Source Oral Pulse Oximetry (%) 99 Oxygen Delivery Method Room Air Intake Visit Reasons: Annual pe Intake Note: CPE. Patient c/o rash on arms and legs itchy. Patient also needs refill on meds. Laboratory Animal Facility Supervisor Required: Yes Laboratory Animal Facility Supervisor Language: [place] Tour Guide Name: Asa [id number] Allergies Seasonal Allergies Allergy (Verified 06/25/25 08:17) Itchy Eyes atorvastatin Adverse Reaction (Unknown, Verified 06/25/25 08:17) Insomnia Medication List - Last Reconciled 06/25/25 by Vianey Song, [facility] [place]- albuterol sulfate 90 mcg/actuation 2 puffs inhalation Q4-6H PRN 30 days azelastine 0.05% 1 drp ophthalmic (eye) BID cetirizine (Allergy Relief (cetirizine)) 10 mg PO DAILY PRN diclofenac sodium 1% 2 grams topical QID PRN ezetimibe (Zetia) 10 mg PO DAILY fluticasone propionate 50 mcg/actuation 2 sprays intranasal DAILY omeprazole 20 mg PO DAILY polyethylene glycol 3350 (Miralax) 17 grams PO DAILY Tobacco use date assessed: 06/25/25 Dental Screening Dental Screen Date: 06/25/25 Did you have a dental visit in the last 12 months?: Yes Did you have a dental problem in the last 6 months where you did not have access to dental care?: No Was dental information given to patient?: Patient has dentist HPI HPI Comments History of Present Illness Details [id number] 49 y/o F with GERD, seasonal allergies, MDD, constipation, HPV, PVD, hyperlipidemia, asthma Surgery: hysterectomy 2021 Fhx: Her children were born here she is from [place] most of her family's in this country she works at [employer] but only 2 days during the week in the summer and she is helping care for her 83-year-old father. Her mother of lung cancer Health Maintenance: Colon thinks done about 2 year ago at [facility]. Unsure if it was normal or not. Record requested Mammo ordered today. DEXA 03/2024 WNL Pap 05/2024 WNL Tdap 03/2024 Specialists: [facility] Here today for CPE - Hyperlipidemia previously treated with Zetia 10 mg. - Chronic GERD, previously managed with omeprazole 20 mg - Seasonal allergies treated with Zyrtec , zestaline eye drops, and Flonase. - Chronic constipation managed with Linda LAX. - High cholesterol levels noted last yea r. - Stopped taking all of her meds; unclea r why. Review of Systems - Respiratory: Reports difficulty with b reathing. - Cardiovascular: Denies any new issues; blood pressure stable. - Allergen: Reports postnasal drip and c ongestion. - Musculoskeletal: Denies any new pain o r issues. Discussion Notes During today's visit, I discussed the current status of her hyperlipidemia and the importance of yearly mammograms. I emphasized the need to resume her GERD and allergy medications to improve her symptoms. We also discussed the need for updated blood work today to monitor her cholesterol levels. We discussed the importance of routine screenings such as mammograms and lab tests, and I will provide her with the results once available. The patient was advised to continue her current medication regimen and follow up with any needed prescriptions from the pharmacy. Consent for procedures and tests was verbal and implied by the patient's participation and agreement. Assessment and Plan 1. Hyperlipidemia - Continue Zetia; monitor cholesterol wi th labs. 2. Gastroesophageal Reflux Disease (GERD ) - Resume omeprazole 20 mg daily. 3. Seasonal Allergies - Continue current antihistamines and na jenny spray. 4. Chronic Constipation - Maintain MiraLAX regimen. Patient Instructions - Continue all prescribed medications. - Call the pharmacy for prescription ref ills as needed. - Schedule and complete recommended mamm ogram. - Stop at front desk coordinator for lab draws today . - Continue taking allergy medication to help with itchiness. - RTO 1 year CPE, sooner PRN Consent Patient was informed and verbally consented to the use of an ambient scribe for clinic note documentation during this visit. [facility] Medical History (Updated 06/25/25 @ 08:47 by JAYASHREE Knight) Acid reflux History of mammogram (~2023) Surgical History (Updated 06/25/25 @ 08:08 by JAYASHREE Knight) H/O: hysterectomy History of colonoscopy (~2022) Family History Mother Diabetes Lung cancer Father High cholesterol Diabetes Family/Other High blood pressure High cholesterol Diabetes Social History Household Members: Family Both parents involved: No Caregiver staying overnight: No Housing: House Are you a primary career development specialist to a significant other at home: No Do you presently have visiting nurse or other home services: No 75 years or older and lives alone: No Alcohol intake: current Alcohol intake frequency: holidays/special occasions only Alcohol type: wine and other Patient Tobacco Use Status: Never used Tobacco e-Cigarette/Vaping Use: Never Used Second Hand Smoke Exposure: No service: No Current occupational status: employed Current occupation: [employer] @ [employer]/ [employer] at [employer] Cognitive needs: No Hearing needs: No Vision needs: Yes Female Reproductive History Menstrual Age of Menarche: 9 Questionnaire PHQ-9 Over the last 2 weeks, how often have you been bothered by any of the following problems? 1. Little interest or pleasure in doing things: not at all 2. Feeling down, depressed, or hopeless: not at all 3. Trouble falling or staying asleep, or sleeping too much: several days 4. Feeling tired or having little energy: not at all 5. Poor appetite or overeating: not at all 6. Feeling bad about yourself - or that you are a failure or have let yourself or your family down: not at all 7. Trouble concentrating on things, such as reading the newspaper or watching television: not at all 8. Moving or speaking so slowly that other people could have noticed. Or the opposite - being so fidgety or restless that you have been moving around a lot more than usual: not at all 9. Thoughts that you would be better off or of hurting yourself in some w ay: not at all Total score: 1 Depression Screening Interpretation: Negative Depression Screening Done: Yes 26515 - PHQ-9 Billing: Yes Source: Developed by Drs. Elmo Potts, Joanne Funes, Calos Gordon and colleagues, with an educational elan from [employer]. Thrive Questionnaire Date Thrive assessed: 06/25/25 I am a: Patient What is your living situation today?: I have a steady place to live Within the past 12 months, did the food you bought not last and you didn't have the money to get more?: Often true Within the past 12 months, did you worry whether your food would run out before you got money to buy more?: Often true Do you have trouble paying for medicines?: No Do you have trouble getting transportation to medical appointments?: No Do you have trouble paying your heating and electricity bill?: No Do you have trouble taking care of your child, family member or friend?: No Do you have trouble with day-to-day activities such as bathing, preparing meals, shopping, managing finances, etc.?: No Are you currently unemployed and looking for a job?: No Are you interested in more education?: No Please select the resources that you would like help with: None Currently or been in a relationship where the following occur: No concerns reported THRIVE Score: 2 AUDIT C Alcohol Use Questionnaire (AUDIT-C) 1. How often do you have a drink containing alcohol?: Monthly or less 2. How many drinks containing alcohol do you have on a typical day when you are drinking?: 1 or 2 3. How often do you have six or more drinks on one occasion?: Never Total Score: 1 Score Reviewed/Action Taken: Yes DAYANARA-7 AMB Questionnaire DAYANARA-7 Date DAYANARA - 7 assessed: 06/25/25 Feeling nervous, anxious, or on edge: 0 = Not at all Not being able to stop or control worryin = Not at all Worrying too much about different things: 0 = Not at all Trouble relaxin = Not at all Being so restless that it is hard to sit still: 0 = Not at all Becoming easily annoyed or irritable: 0 = Not at all Feeling afraid as if something awful might happen: 0 = Not at all Total DAYANARA-7 score (0-4 normal; 5-9 mild; 10-14 moderate; 15-21 severe): 0 Source: Developed by Drs. Elmo Potts, Joanne Funes, Calos Gordon and colleagues, with an educational elan from [employer]. DAYANARA-7 Assessment Billing DAYANARA-7 Assessment Tool: DAYANARA-7 Assessment 19097 ACT Questionnaire In the past 4 weeks, how much of the time did your asthma keep you from getting as much done at work, school or at home?: None of the time During the past 4 weeks, how often have you had shortness of breath?: Not at all During the past 4 weeks, how often did your asthma symptoms wake you up at night or earlier than usual in the morning?: Not at all During the past 4 weeks, how often have you had to use your rescue inhaler or nebulizer medication?: Not at all How would you rate your asthma control during the past 4 weeks?: Completely controlled ACT Interpretation: Negative Score: 25 Physical exam (Primary Care) Vital Signs: Last Vital Signs Temp 97.2 F 06/25/25 08:11 Pulse 55 06/25/25 08:11 Resp 12 06/25/25 08:11 BP 122/70 06/25/25 08:11 Pulse Ox 99 06/25/25 08:11 Oxygen Delivery Method Room Air 06/25/25 08:11 BMI result Body Mass Index 29.1 BMI Assessment/Plan discussion: High BMI High, discussed plan: lifestyle Tobacco/Smoking Status: Tobacco use Status Tobacco use date assessed 06/25/25 06/25/25 08:07 Patient Tobacco Use Status Never used Tobacco 06/25/25 08:07 e-Cigarette/Vaping Use Never Used 06/25/25 08:07 PHQ-9: PHQ-9 Score PHQ-9: Total score 1 06/25/25 08:16 Depression Screening Interpretation: Negative Thrive Assessment: Date of Thrive Assessment Date Thrive assessed 06/25/25 06/25/25 08:07 Currently or been in a relationship where the following occur: No concerns reported Advance Care Planning discussion: Exists, not on file Date of discussion: 04/02/24 Who was present: Self and daughter Forms completed: Health Care Proxy and MOLST Time spent: 1-15 minutes, not on file Actual minutes spent: 5 Did not discuss due to Cultural/Spiritual beliefs: Yes Const Other: General: Well developed, well nourished, in no acute distress. Appears stated age. Accompanied by daughter Head: Normocephalic, atraumatic. Eyes: Pupils are equal, round and reactive to light and accommodation. Conjunctivae are clear. Vision grossly normal. Ears: TMs with mild congestion bilat, EACS WNL Nose: Patent, without discharge. Turbinates pale and edematous bilat Mouth: There are no ulcers or lesions noted. No inflammation, no plaques nor exudates. Postnasal drip Neck: Supple, no adenopathy or thyromegaly. Lungs: Clear to auscultation bilaterally. No rales, rhonchi or wheeze noted. Good air flow in all siu. Heart: Regular rate and rhythm. No murmurs, click, rubs or gallops are noted. Abdomen: Bowel sounds present in all quadrants. The abdomen is soft,with no masses or organomegaly noted. No hernias are noted. Tender without rebound 2 left lower quadrant Musculoskeletal: Joints are nontender, without swelling, redness, or effusions. Range of motion is observed to be normal. Pulses: Peripheral pulses are equal and palpable bilaterally. Spinal exam within normal limits, CVAT bilat negative Extremities: No clubbing, cyanosis nor edema is noted. hairless lower ext half way down lower legs bilat Neurologic: Gait and station normal. Cranial Nerves 2-12 intact. Motor strength grossly symmetrical and intact. No sensory loss. Balance normal. Skin: No rashes, ulcers, or lesions noted. Turgor is good. Skin color is good. Hair and nails are without abnormalities. Psych: Normal eye contact, affect and mood appropriate, and normal interactions. Patient is alert and appropriate to context. Extremities: No clubbing, cyanosis or edema. Coding Level of Care Code Est Pt Prev Care 40-64y(56730) Diagnoses Encounter for general adult medical examination without abnormal findings Z00.00 PVD (peripheral vascular disease) I73.9 Mixed hyperlipidemia E78.2 Hyperlipidemia type: mixed hyperlipidemia Seasonal allergies J30.2 Gastroesophageal reflux disease without esophagitis K21.9 Esophagitis presence: without esophagitis Slow transit constipation K59.01 Constipation type: slow transit constipation H/O: hysterectomy Z90.710 Post hysterectomy menopause E89.40; Z90.710 Laboratory exam ordered as part of routine general medical examination Z00.00 BMI 29.0-29.9,adult Z68.29 Additional Codes Asthma Control Questionnaire - ACT Interpretation: Negative ([id number]) DAYANARA-7 Assessment Billing - DAYANARA-7 Assessment Tool: DAYANARA-7 Assessment 76915 ([id number]) PHQ-9 - 27097 - PHQ-9 Billing: Yes ([id number]) Vital Signs *Quality* - Advance Care Planning discussion: Exists, not on file ([id number]) Vital Signs *Quality* - Time spent: 1-15 minutes, not on file ([id number]) Vital Signs *Quality* - Did not discuss due to Cultural/Spiritual beliefs: Yes ([id number]) Assessment & Plan Assessment & Plan (1) Encounter for general adult medical examination without abnormal findings: Onset Date: ~06/25/25 Code(s): Z00.00 - Encounter for general adult medical examination without abnormal findings Category: Medical (2) PVD (peripheral vascular disease): Comment: based on clinical exam of hairless BLE, skin intact, monitor skin integrity. Normal Pedal pulses. BP at goal w/o meds. Check lipid profile. Code(s): I73.9 - Peripheral vascular disease, unspecified Category: Medical (3) Hyperlipidemia: Code(s): E78.5 - Hyperlipidemia, unspecified Category: Medical Qualifiers: Hyperlipidemia type: mixed hyperlipidemia Qualified Code(s): E78.2 - Mixed hyperlipidemia (4) Seasonal allergies: Comment: Refill sent in on his saline, Flonase. New prescription for Zyrtec. Code(s): J30.2 - Other seasonal allergic rhinitis Category: Medical (5) Acid reflux: Comment: Was well controlled on omeprazole. New prescription has been sent for omeprazole 20 mg p.o. daily. Code(s): K21.9 - Gastro-esophageal reflux disease without esophagitis Category: Medical Qualifiers: Esophagitis presence: without esophagitis Qualified Code(s): K21.9 - Gastro-esophageal reflux disease without esophagitis (6) Constipation: Comment: MiraLax One capful mixed with 8 oz of fluid to be taken at bedtime. Titrate to effect. Decrease if diarrhea. Code(s): K59.00 - Constipation, unspecified Category: Medical Qualifiers: Constipation type: slow transit constipation Qualified Code(s): K59.01 - Slow transit constipation (7) H/O: hysterectomy: Comment: 2021 @ [facility], unclear why- records requested. Code(s): Z90.710 - Acquired absence of both cervix and uterus Category: Surgical (8) Post hysterectomy menopause: Comment: DEXA 2023 wnl Code(s): E89.40 - Asymptomatic postprocedural ovarian failure; Z90.710 - Acquired absence of both cervix and uterus Category: Medical (9) Laboratory exam ordered as part of routine general medical examination: Code(s): Z00.00 - Encounter for general adult medical examination without abnormal findings Category: Medical (10) BMI 29.0-29.9,adult: Comment: Lifestyle modifications. Code(s): Z68.29 - Body mass index [BMI] 29.0-29.9, adult Category: Medical Plan , Orders: Orders MM tomosynthesis screening BI Today Z12.31 - Encounter for screening mammogram for malignant neoplasm of breast Medications: Refilled omeprazole 20 mg PO DAILY 90 caps 2RF fluticasone propionate 50 mcg/actuation administer into each nostril 2 sprays intranasal DAILY 16 grams 12RF ezetimibe (Zetia) 10 mg PO DAILY 90 tabs 2RF polyethylene glycol 3350 (Miralax) 17 grams PO DAILY 119 grams 12RF azelastine 0.05% 1 drp ophthalmic (eye) BID 6 mL 12RF cetirizine (Allergy Relief (cetirizine)) 10 mg PO DAILY PRN 90 tabs 2RF allergy symptoms albuterol sulfate 90 mcg/actuation 2 puffs inhalation Q4-6H PRN 8.5 grams 1RF shortness of breath or wheezing 30 days Patient Instructions: Health screenings for women You should visit your health care provider from time to time, even if you are healthy. The purpose of these visits is to: Screen for medical issues Assess your risk for future medical problems Encourage a healthy lifestyle Update vaccinations and other preventive care services Help you get to know your provider in case of an illness Information Even if you feel fine, you should still see your provider for regular checkups. These visits can help you avoid problems in the future. For example, the only way to find out if you have high blood pressure is to have it checked regularly. High blood sugar and high cholesterol levels also may not have any symptoms in the early stages. A simple blood test can check for these conditions. There are specific times when you should see your provider or receive specific health screenings. The [place] Preventive Services Task Force publishes a list of recommended screenings. Below are screening guidelines for women ages 18 to 39. BLOOD PRESSURE SCREENING Your blood pressure should be checked at least once every 3 to 5 years if: Your blood pressure is in the normal range (top number less than 120 mm Hg and bottom number less than 80 mm Hg) You don't have risk factors for high blood pressure Ask your provider if you need your blood pressure checked more often if: The top number is 120 to 129 mm Hg or the bottom number is 70 to 79 mm Hg You have diabetes, heart disease, kidney problems, are overweight, or have certain other health conditions You have a first-degree relative with high blood pressure You are Black You had high blood pressure during a If the top number is 130 mm Hg or greater or the bottom number is 80 mm Hg or greater, this is considered stage 1 hypertension. Schedule an appointment with your provider to learn how you can reduce your blood pressure. Watch for blood pressure screenings in your area. Ask your provider if you can stop in to have your blood pressure checked. BREAST CANCER SCREENING Experts do not agree about the benefits of breast self-exams in finding breast cancer or saving lives. Talk to your provider about what is best for you. A screening mammogram is not recommended for most women under age 40. Your provider may discuss and recommend mammograms, MRI scans, or ultrasounds if you have an increased risk for breast cancer, such as: A mother or sister who had breast cancer at a young age (most often starting screening earlier than the age the close relative was diagnosed) You carry a high-risk genetic marker CERVICAL CANCER SCREENING Cervical cancer screening should start at age 21 years unless your provider advises otherwise. After the first test: Women ages 21 through 29 should have a Pap test every 3 years. Exoprts do not agree on whether HPV testing is recommended for this age group. Women ages 30 through 65 should be screened with either a Pap test every 3 years or the HPV test every 5 years or both tests every 5 years (called cotesting ). Women who have been treated for precancer (cervical dysplasia) should continue to have Pap tests for 20 years after treatment or until age 65, whichever is longer. If you have had your uterus and cervix removed (total hysterectomy), and you have not been diagnosed with cervical cancer or precancer (high grade cervical neoplasia), you do not need cervical cancer screening. CHOLESTEROL SCREENING Cholesterol screening should begin at: Age 45 for women with no known risk factors for coronary heart disease Age 20 for women with known risk factors for coronary heart disease Repeat cholesterol screening should take place: Every 5 years for women with normal cholesterol levels More often if changes occur in lifestyle (including weight gain and diet) More often if you have diabetes, heart disease, kidney problems, or certain other conditions DIABETES SCREENING You should be screened for diabetes starting at age 35 and then repeated every 3 years if you have no risk factors for diabetes. Screening may need to start earlier and be repeated more often if you have other risk factors for diabetes, such as: You have a first degree relative with diabetes. You are overweight or have obesity. You have high blood pressure, prediabetes, or a history of heart disease. Screening for diabetes should be done if you are planning to become and you are overweight and have other risk factors such as high blood pressure. DENTAL EXAM Go to the dentist once or twice every year for an exam and cleaning. Your dentist will evaluate if you need more frequent visits. EYE EXAM Have an eye exam every 5 to 10 years before age 40. If you have vision problems, have an eye exam every 2 years or more often if recommended by your provider. You should have an eye exam that includes an examination of your retina (back of your eye) at least every year if you have diabetes. IMMUNIZATIONS Commonly needed vaccines include: Flu shot: get one every year. COVID-19 vaccine: ask your provider what is best for you. Tetanus-diphtheria and acellular pertussis (Tdap) vaccine: have one at or after age 19 as one of your tetanus-diphtheria vaccines if you did not receive it as an adolescent. Tetanus-diphtheria: have a booster (or Tdap) every 10 years. Varicella vaccine: receive 2 doses if you never had chickenpox or the varicella vaccine. Hepatitis B vaccine: receive 2, 3, or 4 doses, depending on your exact circumstances. Measles, mumps, and rubella (MMR) vaccine: receive 1 to 2 doses if you are not already immune to MMR. Your provider can tell you if you are immune. Ask your provider about the human papillomavirus (HPV) vaccine if: You have not received the HPV vaccine in the past You have not completed the full vaccine series (you should catch up on this shot) Ask your provider if you should receive other immunizations if you have certain health problems that increase your risk for some diseases such as pneumonia. INFECTIOUS DISEASE SCREENING Women who are sexually active should be screened for chlamydia and gonorrhea up until age 25. Women 25 years and older should be screened for chlamydia and gonorrhea if at high risk. Screening for hepatitis C: All adults ages 18 to 79 should get a one-time test for hepatitis C. people should be screened at every . Screening for human immunodeficiency virus (HIV): All people ages 15 to 65 should get a one-time test for HIV. Depending on your lifestyle and medical history, you may also need to be screened for infections such as syphilis and HIV, as well as other infections. PHYSICAL EXAM All adults should visit their provider from time to time, even if they are healthy. The purpose of these visits is to: Screen for disease Assess your risk of future medical problems Encourage a healthy lifestyle Update your vaccinations and other preventive care services Maintain a relationship with a provider in case of an illness Your height, weight, and BMI should be checked at every exam. During your exam, your provider may ask you about: Depression and anxiety Diet and exercise Alcohol and tobacco use Safety issues, such as using seat belts, smoke detectors, and intimate partner violence Your medicines and risk for interactions SKIN SELF-EXAM Your provider may check your skin for signs of skin cancer, especially if you're at high risk, such as if you: Have had skin cancer before Have close relatives with skin cancer Have a weakened immune system OTHER SCREENING Talk with your provider about colon cancer screening if you have a strong family history of colon cancer or polyps, or if you have had inflammatory bowel disease or polyps yourself. Routine bone density screening of women under 40 is not recommended.
[2025-06-25 08:11] VITALS: BP 122/70; PULSE 55; RESP 12; TEMP 36.2; O2SAT 99; BMI 29.1
== END 2025-06-25 08:30 | disposition home or self-care (01) ==
LOC: HO.HMCFM 08:01
PROVIDERS: PCP Nurse Practitioner Family; Visit Provider Nurse Practitioner Family
DX: Z00.00 Encounter for general adult medical examination without abnormal findings (principal); I73.9 Peripheral vascular disease, unspecified; E78.2 Mixed hyperlipidemia; J30.2 Other seasonal allergic rhinitis; K21.9 Gastro-esophageal reflux disease without esophagitis; K59.01 Slow transit constipation; Z90.710 Acquired absence of both cervix and uterus; E89.40 Asymptomatic postprocedural ovarian failure; Z68.29 Body mass index [BMI] 29.0-29.9, adult

== ENCOUNTER → 2025-06-25 08:00 | Outpatient (BNVA) | payer OTHER, SELFPAY | PROVIDERS: PCP Nurse Practitioner Family; Visit Provider Nurse Practitioner Family | DX: Z00.00 Encounter for general adult medical examination without abnormal findings (principal); I73.9 Peripheral vascular disease, unspecified; E78.2 Mixed hyperlipidemia; J30.2 Other seasonal allergic rhinitis; K21.9 Gastro-esophageal reflux disease without esophagitis; K59.01 Slow transit constipation; E89.40 Asymptomatic postprocedural ovarian failure; Z90.710 Acquired absence of both cervix and uterus; Z79.899 Other long term (current) drug therapy; Z13.31 Encounter for screening for depression; Z13.39 Encounter for screening examination for other mental health and behavioral disorders | CPT/HCPCS: 96127; 96160 ==

== ENCOUNTER 2025-06-25 09:01 | Outpatient (REF) | payer OTHER, SELFPAY ==
[2025-06-25 13:09] LABS: Cholesterol 225 mg/dL (<200); HDL Cholesterol 49 mg/dL (>40); Triglycerides 181 mg/dL (<150)
== END 2025-06-25 09:02 | disposition home or self-care (01) ==
LOC: HO.WFDLDS 09:01
PROVIDERS: Visit Provider Nurse Practitioner Family
DX: E78.5 Hyperlipidemia, unspecified (principal)
CPT/HCPCS: 36415; 80061

== ENCOUNTER 2025-08-07 08:13 | Outpatient (REF) | payer OTHER, SELFPAY | END 2025-08-07 08:14 | disposition home or self-care (01) | LOC: HO.MAMMO 08:13 | PROVIDERS: PCP Nurse Practitioner Family; Visit Provider Nurse Practitioner Family | DX: Z12.31 Encounter for screening mammogram for malignant neoplasm of breast (principal) | CPT/HCPCS: 77063; 77067 ==

== ENCOUNTER → 2025-08-07 08:15 | Outpatient (BNV) | payer OTHER, SELFPAY | PROVIDERS: PCP Nurse Practitioner Family; Visit Provider Radiology Body Imaging | DX: Z12.31 Encounter for screening mammogram for malignant neoplasm of breast (principal) | CPT/HCPCS: 77063; 77067 ==

== ENCOUNTER 2025-08-31 10:05 | Outpatient (REF) | payer OTHER, SELFPAY ==
--- OUTSIDE RECORDS SUMMARY | 2025-08-31 14:52 | XMS_ITS | Clinical Summary ---
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 file Not [...] 2023 ZOSTER VACCINES (1 of 2) 2023 INFLUENZA VACCINE (#1) 2025 1, 01/17/2011 COVID-19 VACCINE (3 - 2024-2 6 season) 2025 04/29/2021, 04/08/2021 SCREENING FOR DIABETES 01/14/2027 01/14/2024 [...] Izaguirre MD - 03/21/2023 1:41 PM EDT [facility] Patient Name: Melina Gonsales Attending MD:: JHONATHAN IZAGUIRRE MD, , Procedure Date: 03/21/2023 1:41 PM Date of : 1975 Age: 47 Admit Type: Outpatient Gender: Female Room: [facility] Referring MD: Zenia Rinaldi Exam Type: Colonoscopy [...] bowel preparation was evaluated using the BBPS ([place] Bowel Preparation Scale)with scores of: Right Colon [...] 1:41 PM Procedure Code(s): --- Professional --- 58547, Colonoscopy, flexible; with removal of tumor(s), polyp(s), or other lesion(s) by snare technique --- Technical --- 89942, Colonoscopy, flexible; with removal of tumor(s), polyp(s), or other lesion(s) by snare technique Diagnosis Code(s): --- Professional --- Z12.11, Encounter for screening for malignantneoplasm of colon D12.2, Benign neoplasm of ascending colon K64.8, Other hemorrhoids --- Technical --- Z12.11, Encounter for screening for malignantneoplasm of colon D12.2, Benign neoplasm of ascending colon K64.8, Other hemorrhoids CPT copyright 2021 [employer]. All rights reserved. The codes documented in this report are preliminary and upon senior attorney reviewmay be revised to meet current compliance requirements. Procedure Date: 03/21/2023 1:41:35 PM [address] [place] [address] Zenia Rinaldi NP GI PROCEDURE ORDERABLES F inal Result from Last 3 Months or Most Recently Relevant to Health Maintenance Insurance [employer] SAFETY NET PARTIAL Member Subscriber Plan / Payer (Ef fective 2023-Present) Name:Melina Gonsales Relation to Subscriber:Self Name:Melina Gonsales Payer ID:Not on file Group ID:Not on file Type:Medicaid Address: [address] PCP [facility] [employer] SAFETY NET PARTIAL WELLSENSE NON NSPG PCP [facility] [employer] SAFET[employer] NET PARTIAL [facility] NON NSPG PCP [place] [facility] [place]AF[place] NON [place] PCP [facility] SAFETY NET PARTIAL [facility] NON NSPG PCP S[facility] SAFETY NET PARTIAL [facility] NON NSPG PCP [place] [facility] Care Teams Escalator Constructor Relationship Specialty Start Date End Date Zenia Rinaldi NP [address] [place] [phone] PCP - General Family Medicine 01/12/22 Additional Source Comments The information contained in this document represents components of the legal health record. It is not the complete legal health record.[facility]
--- OUTSIDE RECORDS SUMMARY | 2025-08-31 14:52 | XMS_ITS | Encounter Summary ---
Author Organization [facility] Address [address] [place] [address] Phone Care Team Providers Care Ramp Service Man Name Role Phone Farheen Velazquez MD Unavailable [phone] Pcp, Unknown Primary Care Provider UnavailCarole Quintero SUPERCHARGE REPAIR SUPERVISOR Primary Care Provid er Zenia Rinaldi SUPERCHARGE REPAIR SUPERVISOR Primary Care Provider [phone] Sunny Friend MD Unavailable [phone] Encounter Details Date Type Department Care Team (Latest Contact Info) Description 08/10/2021 Transcribe Orders [facility] [address] [place] [address] Shaina Steen PA-C [address], [address] [place] [address] [email or web address] Duodenitis (Primary Dx) Social History Tobacco Use Types Packs/Day Years Used Date Smoking Tobacco: Never Alcohol Use Standard Drinks/Week Comments Not Currently 0 (1 standard drink = 0.6 oz pur e alcohol) Comments Unknown Sex and Gender Information Value Date Recorded Sex Assigned at Not on file Legal Sex Female 9:31 PM EDT Gender Identity Not on file Sexual Orientation Not on file documented as of this encounter Plan of Treatment Not on file documented as of this encounter Results * Tissue transglutaminase IgA (08/10/2021 1:08 PM EDT) TTG IGA ANTIBODY <1.2 <4.0 (Negative) U/mL [facility] MED[facility] Blood 08/10/2021 1:08 PM EDT 08/10/2021 1:10 PM EDT us Shaina Steen PA-C LAB BLOOD ORDERABLES Final Resu lt [facility] MED[facility] [address] [address] [place] [address] * Immunoglobulin A (08/10/2021 1:08 PM EDT) IgA 197 70 - 400 mg/dL [facility] Blood 08/10/2021 1:08 PM EDT 08/10/2021 1:10 PM EDT us Shaina Steen PA-C LAB BLOOD ORDERABLES Final Resu lt Performing Organization Address City/[facility] Co de Phone Number [facility] [address] [place] [address] documented in this encounter Visit Diagnoses Diagnosis Duodenitis- Primary documented in this encounter Care Teams Ramp Service Man Relationship Specialty Start Date End Date Pcp, Unknown PCP - General 04/12/21 12/13/21 Carole Kelly NP [address] [place] [address] [email or web address] PCP - General Family Medicine 12/14/21 01/11/22 Zenia Rinaldi NP [address] [place] [address] PCP - General Family Medicine 01/12/22 Farheen Velazquez MD [address] [place] [address] Insurance Assigned Provider 01/28/21 09/01/22 Sunny Friend MD [address] [place] [phone] Insurance Assigned Provider 09/01/22 08/03/23 documented as of this encounter Additional Source Comments The information contained in this document represents components of the legal health record. It is not the complete legal health record.[facility]
--- OUTSIDE RECORDS SUMMARY | 2025-08-31 14:52 | XMS_ITS | Encounter Summary ---
Author Organization [facility] Address [address] [place] [address] Phone Care Team Providers Care Radio Equipment Installer Name Role Phone Zenia Rinaldi NP Primary Care Provider [phone] Sunny Friend MD Unavailable [phone] Encounter Details Date Type Department Care Team (Late st Contact Info) Description 03/21/2023 Procedure Pass [facility] Endoscopy Admitting Dept Virtual Department [address] [place] [address] Social History Tobacco Use Types Packs/Day Years Used Date Smoking Tobacco: Never Smokeless Tobacco: Never Alcohol Use Standard Drinks/Week Comments Not Currently 0 (1 standard drink = 0.6 oz pur e alcohol) Education Answer Date Recorded Are you interested in more education? Not on norma e 03/21/2023 Are you concerned about learning? 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 f ile documented as of this encounter Plan of Treatment Not on file documented as of this encounter Visit Diagnoses Not on filedocumented in this encounter Care Teams Radio Equipment Installer Relationship Specialty Start Date End Date Zenia Rinaldi NP [address] [place] [address] PCP - General Family Medicine 01/12/22 Sunny Friend MD [address] [place] [address] [email or web address] Insurance Assigned Provider 09/01/22 08/03/23 documented as of this encounter Additional Source Comments The information contained in this document represents components of the legal health record. It is not the complete legal health record.[facility]
--- OUTSIDE RECORDS SUMMARY | 2025-08-31 14:52 | XMS_ITS | Encounter Summary ---
Author Organization [facility] Address [address] [place] [address] Phone Care Team Providers Care Tester Equipment Name Role Phone Tammi Lynch MD Unavailable + Farheen Velazquez MD Unavailable Pcp, Unknown Primary Care Provider UnavailCarole Quintero NP Primary Care Provid er Zenia Rinaldi NP Primary Care Provider [phone] Sunny Friend MD Unavailable Encounter Details Date Type Department Care Team (Late st Contact Info) Description 12/05/2020 Transcribe Orders Virtual Department [address] [place] [address] Luly Hutchison NP [address] [place] [address] [email or web address] Exposure to SARS-associated coronavirus (Primary Dx) Social History Tobacco Use Types [...] documented as of this encounter Visit Diagnoses Diagnosis Exposure to SARS-associated coronavirus- Primary documented in this encounter Additional Health Concerns Infection Onset Date Last Indicated Resolved Time CoV-Exposed Comment:Recent close contact 12/05/2020 12/05/2020 12/19/2020 1:24 AM EST documented as of this encounter Care Teams Tester Equipment Relationship Specialty Start Date End Date Pcp, Unknown PCP - General 04/12/21 12/13/21 Carole Kelly NP [address] [place] [address] [email or web address] PCP - General Family Medicine 12/14/21 01/11/22 Zenia Rinaldi NP [address] [place] [address] PCP - General Family Medicine 01/12/22 Tammi Lynch MD [address] [place] [phone] [email or web address] Insurance Assigned Provider 01/29/20 01/28/21 Farheen Velazquez MD [address] [place] [phone] Insurance Assigned Provider 01/28/21 09/01/22 Sunny Friend MD [address] [place] [phone] Insurance Assigned Provider 09/01/22 08/03/23 documented as of this encounter Additional Source Comments The information contained in this document represents components of the legal health record. It is not the complete legal health record.[facility]
--- OUTSIDE RECORDS SUMMARY | 2025-08-31 14:52 | XMS_ITS | Encounter Summary ---
Author Organization [facility] Address [address] [place] [address] Phone Care Team Providers Care Horseback Excavator Name Role Phone Farheen Velazquez MD Unavailable [phone] Pcp, Unknown Primary Care Provider UnavailCarole Quintero NP Primary Care Provid er Zenia Rinaldi NP Primary Care Provider [phone] Sunny Friend MD Unavailable [phone] Encounter Details Date Type Department Care Team (Late st Contact Info) Description 05/18/2021 Procedure Pass [facility] Endoscopy Admitting Dept Virtual Department [address] [place] [address] Social History Tobacco Use Types Packs/Day Years [...] on filedocumented in this encounter Care Teams Horseback Excavator Relationship Specialty Start Date End Date Pcp, Unknown PCP - General 04/12/21 12/13/21 Carole Kelly NP [address] [place] [address] [email or web address] PCP - General Family Medicine 12/14/21 01/11/22 Zenia Rinaldi NP [address] [place] [address] PCP - General Family Medicine 01/12/22 Farheen Velazquez MD [address] [place] [phone] [email or web address] Insurance Assigned Provider 01/28/21 09/01/22 Sunny Friend MD [address] [place] [phone] Insurance Assigned Provider 09/01/22 08/03/23 documented as of this encounter Additional Source Comments The information contained in this document represents components of the legal health record. It is not the complete legal health record.[facility]
--- OUTSIDE RECORDS SUMMARY | 2025-08-31 14:52 | XMS_ITS | Encounter Summary ---
Author Organization [facility] Address [address] [place] [address] Phone Care Team Providers Care Airport Maintenance Chief Name Role Phone Farheen Velazquez MD Unavailable [phone] Pcp, Unknown Primary Care Provider UnavailCarole Quintero STUDENT LIFE DEAN Primary Care Provid er Zenia Rinaldi [employer]UDENT [employer] DEAN Primary Care Provider [phone] Sunny Friend MD Unavailable [phone] Encounter Details Date Type Department Care Team (Latest Contact Info) Description 05/19/2021 Transcribe Orders Virtual Department [address] [place] [address] Jhonathan Matias MD [address] [place] [address] [email or web address] Dysphagia, unspecified type (Primary Dx) Social History Tobacco Use Types [...] documented as of this encounter Results * FL (Speech) Video Swallow Study (01/11/2022 10:35 AM EST) Anatomical Region Laterality Modality Radio Fluoroscop y 01/11/2022 11:3 9 AM EST Impressions 01/11/2022 11:43 AM EST Hesitancy in initiating swallows but otherwise unremarkable study without evidence of hypopharyngeal dysmotility. The results of this examination were reviewed with the speech pathologist. FLUOROSCOPY TIME: 1 min. 32 sec; 781 IMAGES/FRAMES POS - [id number] Narrative 01/11/2022 11:43 AM EST COMPARISON: 10/27/2012. Swallow FINDINGS: A preliminary lateral view of the neck reveals mild degenerative disc changes at the C5-6 level with tiny ventral osteophytes present. With the patient in the upright lateral projection thin liquid barium, applesauce with barium paste, and lesa cracker with barium paste were sequentially presented by the speech pathologist with deglutition assessed fluoroscopically and recorded on rapid sequence digital images. There was adequate tongue base control of all substances. Cracker was masticated appropriately. The patient apparently had difficulty in initiating swallows but once they were triggered no aspiration, nasopharyngeal reflux, or cricopharyngeal achalasia were identified. No significant residuum in the valleculae or piriform sinuses. Limited evaluation of the thoracic esophagus revealed no impedance to passage of liquid barium. Procedure Note Camilo Clark MD - 01/11/2022 COMPARISON: 10/27/2012. Swallow FINDINGS: A preliminary lateral view of the neck reveals mild degenerative discchanges at the C5-6 level with tiny ventral osteophytes present. With thepatient in the upright lateral projection thin liquid barium, applesaucewith barium paste, and lesa cracker with barium paste were sequentiallypresented by the speech pathologist with deglutition assessedfluoroscopically and recorded on rapid sequence digital images. There was adequate tongue base control of all substances. Cracker wasmasticated appropriately. The patient apparently had difficulty ininitiating swallows but once they were triggered no aspiration,nasopharyngeal reflux, or cricopharyngeal achalasia were identified. Nosignificant residuum in the valleculae or piriform sinuses. Limitedevaluation of the thoracic esophagus revealed no impedance to passage ofliquid barium. IMPRESSION: Hesitancy in initiating swallows but otherwise unremarkable study withoutevidence of hypopharyngeal dysmotility. The results of this examinationwere reviewed with the speech pathologist. FLUOROSCOPY TIME: 1 min. 32 sec; 781 IMAGES/FRAMES POS - [id number] us Jhonathan Matias MD IMG FL EXAMS Final Result documented in this encounter Visit Diagnoses Diagnosis Dysphagia, unspecified type- Primary Dysphagia, unspecified type- Primary documented in this encounter Care Teams Airport Maintenance Chief Relationship Specialty Start Date End Date Pcp, Unknown PCP - General 04/12/21 12/13/21 Carole Kelly NP [address] [place] [address] [email or web address] PCP - General Family Medicine 12/14/21 01/11/22 Zenia Rinladi NP [address] [place] [address] PCP - General Family Medicine 01/12/22 Farheen Velazquez MD [address] [place] [address] [email or web address] Insurance Assigned Provider 01/28/21 09/01/22 Sunny Friend MD [address] [place] [address] Insurance Assigned Provider 09/01/22 08/03/23 documented as of this encounter Additional Source Comments The information contained in this document represents components of the legal health record. It is not the complete legal health record.[facility]
[2025-09-01 12:15] LABS: Bacterial Vaginosis PCR POSITIVE (Negative); Candida Group PCR NOT DETECTED (Not Detect); Candida glab krusei PCR NOT DETECTED (Not Detect); Trichomonas vaginalis PCR NOT DETECTED (Not Detect)
[2025-09-01 16:21] LABS: CT PCR NOT DETECTED (Not Detect.); NG PCR NOT DETECTED (Not Detect.)
== END 2025-08-31 10:06 | disposition home or self-care (01) ==
LOC: HO.LAB 10:05
PROVIDERS: PCP Nurse Practitioner Family; Visit Provider Advanced Practice Midwife
DX: Z01.419 Encounter for gynecological examination (general) (routine) without abnormal findings (principal); N89.8 Other specified noninflammatory disorders of vagina; Z90.710 Acquired absence of both cervix and uterus; Z20.2 Contact with and (suspected) exposure to infections with a predominantly sexual mode of transmission
CPT/HCPCS: 81515; 87491; 87591

== ENCOUNTER 2025-08-31 10:05 | Outpatient (AMB) | payer OTHER, SELFPAY ==
--- NOTE | 2025-08-31 10:23 | A.OFFVIS_ITS ---
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 Process Safety Manager: Process Safety Manager Present (Denice) Accompanied by: Self / Same As Patient Allergies Seasonal Allergies Allergy (Verified 08/31/25 10:30) Itchy Eyes atorvastatin Adverse Reaction (Unknown, Verified 08/31/25 10:30) Insomnia Medication List - Last Reconciled 08/31/25 by Priti Avelar CNM albuterol sulfate 90 mcg/actuation 2 puffs inhalation Q4-6H PRN 30 days azelastine 0.05% 1 drp ophthalmic (eye) BID cetirizine (Allergy Relief (cetirizine)) 10 mg PO DAILY PRN diclofenac sodium 1% 2 grams topical QID PRN fluticasone propionate 50 mcg/actuation 2 sprays intranasal DAILY omeprazole 20 mg PO DAILY Is last menstrual period known: No Post menopausal: No Patient : No HPI HPI 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 Patient isn't worried about anything in particular she will be having another mammogram coming up soon on the 18th of this month. She isn't particularly worried about any infections or anything but consents to testing for infections with the exam just in case. She does wonder about something for vaginal dryness when she does have sex though she is not complaining of anything today. She still works lots of days she has a son and a daughter who are both nurses in 1 child studying to be an enterprise architect manager. She is studying for citizenship. [facility] Medical History (Updated 08/31/25 @ 11:29 by Priti Avelar CNM) History of mammogram (~2023) Acid reflux Surgical History (Updated 08/31/25 @ 13:15 by Priti Avelar CNM) History of colonoscopy (~2022) H/O: hysterectomy Family History Mother Diabetes Lung cancer Father High cholesterol Diabetes Family/Other High blood pressure High cholesterol Diabetes Social History Household Members: Family Housing: House Are you a primary resident care aid to a significant other at home: No Do you presently have visiting nurse or other home services: No Alcohol intake: current Alcohol intake frequency: holidays/special occasions only Alcohol type: wine and other Patient Tobacco Use Status: Never used Tobacco e-Cigarette/Vaping Use: Never Used Second Hand Smoke Exposure: No service: No Current occupational status: employed 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 [employer] Cognitive needs: No Hearing needs: No Vision needs: Yes Female Reproductive History Menstrual Age of Menarche: 9 Total pregnancies: 3 Full term: 3 Date of last pap smear: 06/04/24 (negative pap smear, negative hpv ) Date of Mammogram: 08/07/25 Date of last Bone Density Screenin04/07/24 Physical Exam Vital Signs: Last Vital Signs BP 120/72 08/31/25 10:33 BMI result Body Mass Index 28.3 Const General: healthy appearing, comfortable, no acute distress, well developed and alert Nutritional Appearance: average body habitus Orientation/consciousness: patient oriented x3 Limitations: no limitations HEENT Head: Yes normocephalic Neck Neck: Yes normal visual inspection Thyroid: Thyroid normal Chest Chest palpation & inspection: normal inspection of the chest Breast/axilla inspection: normal inspection of the breasts and normal inspection of the axillae Breast/axilla palpation: normal palpation of the breasts and normal palpation of the axillae Resp Effort & Inspection: normal respiratory effort GI Inspection: Yes normal to inspection, No Abdominal wall edema and No distended Palpation (GI): Soft to palpation and nontender Other: Cervix and uterus are surgically absent. Vaginal mucosa pink and moist Pap smear and swabs taken from vaginal mucosa and vaginal cuff. Fair tone with Kegel. Patient was able to increase strength of Kegel with practice. General: Yes bladder normal to palpation External Female Exam: normal external appearance and normal appearance of the urethra Speculum Exam - Vagina: normal appearance of the vagina, normal palpation and normal vaginal discharge Bimanual exam- vagina & uterus: normal bimanual exam, normal palpation, bladder normal to palpation, non-tender and no cervical motion tenderness Bimanual Exam- Adnexa, other: normal adnexae, no masses, normal and No adnexal tenderness Neuro General: patient oriented x3 Assessment & Plan Assessment & Plan (1) H/O: hysterectomy: Comment: 2021 @ [facility], unclear why- records requested.---- 08/31/2025 record review from 2023 visit at [facility] mentions cervical adeno carcinoma. Code(s): Z90.710 - Acquired absence of both cervix and uterus Category: Surgical (2) Cervical cancer screening: Comment: 08/31/2025 record review mentions cervical adeno carcinoma at a postop visit in [facility]. Pap smear done a vaginal cuff today. Code(s): Z12.4 - Encounter for screening for malignant neoplasm of cervix Category: Medical (3) Well woman exam with routine gynecological exam: Code(s): Z01.419 - Encounter for gynecological examination (general) (routine) without abnormal findings Category: Medical Plan -----Discussed in this visit the following: healthy balanced diet, regular and consistent exercise, getting recommended health screens, doing the best she can for her particular health concerns, kegel exercises, pap smear screening and followup recommendations, mammography screening and SBE, normal changes in cycles in her life stage--- . See HPI for details discussed during the visit. Testing ordered and done as patient requested she is up-to-date with her other screens. Pap smear done from vaginal cuff secondary to notation in [facility] records of cervical adenocarcinoma . Kegel's practiced during visit and encouraged. Orders: Orders Bacterial Vaginosis Panel Today N89.8 - Other specified noninflammatory disorders of vagina Pap Smear Today Z01.419 - Encounter for gynecological examination (general) (routine) without abnormal findings Coding Level of Care Code Est Pt Prev Care 40-64y(31681) Diagnoses H/O: hysterectomy Z90.710 Cervical cancer screening Z12.4 Well woman exam with routine gynecological exam Z01.419
[2025-08-31 10:33] VITALS: BP 120/72; BMI 28.3
--- OUTSIDE RECORDS SUMMARY | 2025-08-31 11:53 | XMS_ITS | Encounter Summary ---
Author Organization [employer] Address [address] [place] [address] [place] [address] Care Team Providers Care Director Of Retail Name Role Phone Charles Cope Unassigned Primary Care Provider U navailable Encounter Details Date Type Department Care Team (Latest Contact Info) Description 08/28/2022 Abstract [facility] CONVERSIONS Dental, Provider, DDS Social History Tobacco Use Types Packs/Day Years Used Date Smoking Tobacco: Never Assessed Comments Unknown Sex and Gender Information Value Date Recorded Sex Assigned at Female 09/03/2023 1:54 PM EDT Legal Sex Female 5:37 PM EDT Gender Identity Female 09/03/2023 1:54 PM EDT Sexual Orientation Straight 09/03/2023 1: 54 PM EDT documented as of this encounter Plan of Treatment Not on file documented as of this encounter Visit Diagnoses Not on filedocumented in this encounter Care Teams Director Of Retail Relationship Specialty Start Date End Date Charles Cope Unassigned PCP - General Family Medicine 03/25/23 documented as of this encounter
--- OUTSIDE RECORDS SUMMARY | 2025-08-31 11:53 | XMS_ITS | Encounter Summary ---
Author Organization [employer] Address [address] [place] [address] [place] [address] Care Team Providers Care Crate Repairer Name Role Phone Charles Cope Unassigned Primary Care Provider U navailable Encounter Details Date Type Department Care Team (Latest Contact Info) Description 07/20/2021 Abstract [facility] CONVERSION[facility] Dental, Provider, DDS Social [...] on filedocumented in this encounter Care Teams Crate Repairer Relationship Specialty Start Date End Date Charles Cope Unassigned PCP - General Family Medicine 03/25/23 documented as of this encounter
--- OUTSIDE RECORDS SUMMARY | 2025-08-31 11:53 | XMS_ITS | Encounter Summary ---
Author Organization [employer] Address [address] [place] [address] [place] [address] Care Team Providers Care Water Sander Name Role Phone Charles Cope Unassigned Primary Care Provider U navailable Encounter Details Date Type Department Care Team (Latest Contact Info) Description 01/25/2022 Abstract [facility] CONVERSION[facility] Dental, Provider, DDS Social [...] on filedocumented in this encounter Care Teams Water Sander Relationship Specialty Start Date End Date Charles Copessigned PCP - General Family Medicine 03/25/23 documented as of this encounter
--- OUTSIDE RECORDS SUMMARY | 2025-08-31 11:53 | XMS_ITS | Clinical Summary ---
Author Organization [employer] Address [address] [place] [address] 7 [place] [address] Care Team Providers Care Postal Service Mail Processor Name Role Phone PcpCharles Unassigned Primary Care [...] 2023 Zoster Vaccines (1 of 2) 2023 Dental X-Ray: Bitewings 09/04/2024 09/03/20, 08/28/2022, 08/24/2022, Additional history exists Dental Oral Exam 09/10/2024 03/10/2024, 08/2023, 08/28/2022, Additional history exists Dental Prophylaxis 09/10/2024 03/10/2024, 1 , 08/28/2022, Additional history exists Tobacco Screening 03/10/2025 03/10/2024 COVID-19 Vaccine ( - season) 2025 11/30/2021, 04/29/2021, 04/08/2021 Influenza Vaccine (#1) 2025 08/27/2011, 2010 Dental [...] DENTAL - HSN PARTIAL (MEDICAID) Care Teams Postal Service Mail Processor Relationship Specialty Start Date End Date PcpCharles Unassigned PCP - General Family Medicine 03/25/23
== END 2025-08-31 14:28 | disposition home or self-care (01) ==
LOC: HO.HWSM 10:05
PROVIDERS: PCP Nurse Practitioner Family; Visit Provider Advanced Practice Midwife
DX: Z01.419 Encounter for gynecological examination (general) (routine) without abnormal findings (principal); Z90.710 Acquired absence of both cervix and uterus
CPT/HCPCS: 99396; 99459

== ENCOUNTER 2025-08-31 11:41 | Outpatient (REF) | payer OTHER, SELFPAY | END 2025-08-31 11:42 | disposition home or self-care (01) | LOC: HO.LNP 11:41 | PROVIDERS: Visit Provider Advanced Practice Midwife | DX: Z01.419 Encounter for gynecological examination (general) (routine) without abnormal findings (principal) | CPT/HCPCS: 87626; 88175 ==

== ENCOUNTER 2025-09-01 12:13 | Outpatient (REF) | payer OTHER, SELFPAY | END 2025-09-01 12:14 | disposition home or self-care (01) | LOC: HO.LAB 12:13 | PROVIDERS: Visit Provider Advanced Practice Midwife | DX: Z13.89 Encounter for screening for other disorder (principal) ==

== ENCOUNTER 2025-09-21 12:53 | Outpatient (REF) | payer OTHER, SELFPAY ==
--- NOTE | ~2025-09-21 | MM_ITS ---
EXAMINATION(S): 1. MM DIAGNOSTIC DIGITAL BREAST TOMOSYNTHESIS, BILATERAL 2. Targeted ultrasound of the right breast 3. Targeted ultrasound of the left breast CLINICAL INFORMATION: Call back for bilateral findings: Right: 0.7 cm asymmetry in the lateral breast on CC view Left: Asymmetry in the upper breast at 6.5 cm from the nipple on the MLO view COMPARISON: Comparison made to multiple prior, most recent August 07, 2025, and most remote April 05, 2017. TECHNIQUE: Digital breast tomosynthesis is performed in full field ML 90 degrees along with computer-aided detection (CAD). Synthesized 2D images are generated from the tomosynthesis. Spot compression tomosynthesis were obtained. FINDINGS: BREAST COMPOSITION: The breasts are heterogeneously dense, which may obscure small masses. RIGHT BREAST: Asymmetry in the lateral breast at approximately 5 cm from the nipple on the CC view partially effaces with spot compression (spot CC 26/74). No definite correlate identified on the ML 90 degrees/MLO view. Targeted ultrasound of the right breast was performed at the location of the mammographic finding. The survey extending from 10:00-1:00 and 8:00 to 5:00 axis did not reveal suspicious sonographic correlate. LEFT BREAST: Asymmetry in the upper breast at about 7.3 cm from the nipple partially effaces with spot compression. Targeted ultrasound of the left breast was performed at the location of the mammographic finding. The survey throughout the upper outer quadrant did not reveal suspicious sonographic correlate. MM/MM tomosynthesis added view BI IMPRESSION: RIGHT BREAST: Asymmetry in the lateral breast at 5 cm from the nipple on the CC view without suspicious sonographic correlate. Probably benign. A 6-month follow-up mammogram is recommended. LEFT BREAST: Asymmetry in the upper breast at 7 cm from the nipple on the MLO view without suspicious sonographic correlate. Probably benign. A 6-month follow-up mammogram is recommended. ASSESSMENT: BI-RADS: Category 3: Probably benign RECOMMENDATION: 6 Month F/U Results were provided to the patient at time of visit by the technologist. This patient's information was entered into a reminder system with a target due date for their next mammogram. Electronically signed by: Nadeen Rajan MD 09/21/2025 04:13 PM EDT
--- OUTSIDE RECORDS SUMMARY | 2025-09-21 16:16 | XMS_ITS | Encounter Summary ---
Author Organization [employer] Address [address] [place] [address] [place] [address] Care Team Providers Care Tube Test Technician Name Role Phone Charles Cope Unassigned Primary [...] on filedocumented in this encounter Care Teams Tube Test Technician Relationship Specialty Start Date End Date Charles Cope Unassigned PCP - General Family Medicine 03/25/23 documented as of this encounter
--- OUTSIDE RECORDS SUMMARY | 2025-09-21 16:16 | XMS_ITS | Clinical Summary ---
Author Organization [employer] Address [address] [place] [address] 7 [place] [address] Care Team Providers Care Pattern Checker Name Role Phone PcpCharles Unassigned Primary Care [...] DENTAL - HSN PARTIAL (MEDICAID) Care Teams Pattern Checker Relationship Specialty Start Date End Date PcpCharles Unassigned PCP - General Family Medicine 03/25/23
--- OUTSIDE RECORDS SUMMARY | 2025-09-21 16:16 | XMS_ITS | Encounter Summary ---
Author Organization [facility] Address [address] [place] [address] Phone Care Team Providers Care Service Line Coordinator Name Role Phone Tammi Lynch MD Unavailable + Farheen Velazquez MD Unavailable Pcp, Unknown Primary Care Provider UnavailCarole Quintero NP Primary Care Provid er Zenia Rinaldi NP Primary Care Provider [phone] Sunny Friend MD Unavailable Encounter Details Date Type Department Care Team (Late st Contact Info) Description 12/05/2020 Transcribe Orders Virtual Department 30 [place] [address] Luly Hutchison NP [address] [place] [address] Exposure to SARS-associated coronavirus (Primary Dx) Social [...] documented as of this encounter Care Teams Service Line Coordinator Relationship Specialty Start Date End Date Pcp, Unknown PCP - General 04/12/21 12/13/21 Carole Kelly NP [address] [place] [address] PCP - General Family Medicine 12/14/21 01/11/22 Zenia Rinaldi NP [address] [place] [address] PCP - General Family Medicine 01/12/22 Tammi Lynch MD [address] [place] [phone] [email or web address] Insurance Assigned Provider 01/29/20 01/28/21 Farheen Velazquez MD [address] [place] [address] Insurance Assigned Provider 01/28/21 09/01/22 Sunny Friend MD [address] [place] [address] Insurance Assigned Provider 09/01/22 08/03/23 documented as of this encounter Additional Source Comments The information contained in this document represents components of the legal health record. It is not the complete legal health record.[facility]
--- OUTSIDE RECORDS SUMMARY | 2025-09-21 16:16 | XMS_ITS | Encounter Summary ---
Author Organization [facility] Address [address] [place] [address] Phone Care Team Providers Care Voip Engineer Name Role Phone Farheen Velazquez MD Unavailable [phone] Pcp, Unknown Primary Care Provider UnavailCarole Quintero NP Primary Care Provid er Zenia Rinaldi NP Primary Care Provider [phone] Sunny Friend MD Unavailable [phone] Encounter Details Date Type Department Care Team (Late st Contact Info) Description 05/18/2021 Procedure Pass [facility] Endoscopy Admitting Dept Virtual Department [address] [place] [address] Social History Tobacco Use Types Packs/Day Years [...] on filedocumented in this encounter Care Teams Voip Engineer Relationship Specialty Start Date End Date Pcp, Unknown PCP - General 04/12/21 12/13/21 Carole Kelly NP [address] [place] [address] [email or web address] PCP - General Family Medicine 12/14/21 01/11/22 Zenia Rinaldi NP [address] [place] [address] PCP - General Family Medicine 01/12/22 Farheen Velazquez MD [address] [place] [address] [email or web address] Insurance Assigned Provider 01/28/21 09/01/22 Sunny Friend MD [address] [place] [phone] Insurance Assigned Provider 09/01/22 08/03/23 documented as of this encounter Additional Source Comments The information contained in this document represents components of the legal health record. It is not the complete legal health record.[facility]
--- OUTSIDE RECORDS SUMMARY | 2025-09-21 16:16 | XMS_ITS | Encounter Summary ---
Author Organization [employer] Address [address] [place] [address] [place] [address] Care Team Providers Care Band Tier Name Role Phone Charles Cope Unassigned Primary [...] on filedocumented in this encounter Care Teams Band Tier Relationship Specialty Start Date End Date Charles Cope Unassigned PCP - General Family Medicine 03/25/23 documented as of this encounter
--- OUTSIDE RECORDS SUMMARY | 2025-09-21 16:16 | XMS_ITS | Encounter Summary ---
Author Organization [facility] Address [address] [place] [address] Phone Care Team Providers Care Yoker Machine Operator Name Role Phone Zenia Rinaldi NP Primary Care Provider [phone] Sunny Friend MD Unavailable [phone] Encounter Details Date Type Department Care Team (Late st Contact Info) Description 03/21/2023 Procedure Pass [facility] Endoscopy Admitting Dept Virtual Department 30 [place] [address] Social History Tobacco Use Types Packs/Day Years [...] on filedocumented in this encounter Care Teams Yoker Machine Operator Relationship Specialty Start Date End Date Zenia Rinaldi NP [address] [place] [address] PCP - General Family Medicine 01/12/22 Sunny Friend MD [address] [place] [address] [email or web address] Insurance Assigned Provider 09/01/22 08/03/23 documented as of this encounter Additional Source Comments The information contained in this document represents components of the legal health record. It is not the complete legal health record.[facility]
--- OUTSIDE RECORDS SUMMARY | 2025-09-21 16:16 | XMS_ITS | Encounter Summary ---
Author Organization [facility] Address [address] [place] [address] Phone Care Team Providers Care Expeller Operator Name Role Phone Farheen Velazquez MD Unavailable [phone] Pcp, Unknown Primary Care Provider UnavailCarole Quintero WINDOWS SERVER ENGINEER Primary Care Provid er Zenia Rinaldi WINDOWS SERVER ENGINEER Primary Care Provider [phone] Sunny Friend MD Unavailable [phone] Encounter Details Date Type Department Care Team (Latest Contact Info) Description 08/10/2021 Transcribe Orders [facility] [address] [place] [address] Shaina Steen PA-C [address] [place] [address] [email or web address] Duodenitis (Primary Dx) Social History Tobacco Use [...] TTG IGA ANTIBODY <1.2 <4.0 (Negative) U/mL [facility] Blood 08/10/2021 1:08 PM EDT 08/10/2021 1:10 PM EDT us Shaina Steen PA-C LAB BLOOD ORDERABLES Final Resu lt [facility] [address] [place] [address] * Immunoglobulin A (08/10/2021 1:08 PM EDT) IgA 197 70 - 400 mg/dL [facility] Blood 08/10/2021 1:08 PM EDT 08/10/2021 1:10 PM EDT us Shaina Steen PA-C LAB BLOOD ORDERABLES Final Resu lt Performing Organization Address City/[facility] Co de Phone Number [facility] [address] [place] [address] documented in this encounter Visit Diagnoses Diagnosis Duodenitis- Primary documented in this encounter Care Teams Expeller Operator Relationship Specialty Start Date End Date Pcp, Unknown PCP - General 04/12/21 12/13/21 Carole Kelly NP [address] [place] [address] [email or web address] PCP - General Family Medicine 12/14/21 01/11/22 Zenia Rinaldi NP [address] [place] [address] PCP - General Family Medicine 01/12/22 Farheen Velazquez MD [address] [place] [address] Insurance Assigned Provider 01/28/21 09/01/22 Sunny Friend MD [address] [place] [address] Insurance Assigned Provider 09/01/22 08/03/23 documented as of this encounter Additional Source Comments The information contained in this document represents components of the legal health record. It is not the complete legal health record.[facility]
--- OUTSIDE RECORDS SUMMARY | 2025-09-21 16:16 | XMS_ITS | Clinical Summary ---
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 Not on file Not [...] COLONOSCOPY 03/21/2033 03/21/2023 COLORECTAL CANCER SCREENING 03/21/2033 RSV VACCINE (1 - 1-dose 75+ series) 2048 HEPATITIS C SCREENING Completed 11/23/2021 SMOKING STATUS [...] Izaguirre MD - 03/21/2023 1:41 PM EDT [facility] Patient Name: Melina Gonsales Attending MD:: JHONATHAN IZAGUIRRE MD, , Procedure Date: 03/21/2023 1:41 PM Date of : 1975 Age: 47 Admit Type: Outpatient Gender: Female Room: [facility] Referring MD: Zenia Rinaldi Exam Type: Colonoscopy [...] bowel preparation was evaluated using the BBPS ([place] Bowel Preparation Scale)with scores of: Right Colon [...] 1:41 PM Procedure Code(s): --- Professional --- 10684, Colonoscopy, flexible; with removal of tumor(s), polyp(s), or other lesion(s) by snare technique --- Technical --- 41024, Colonoscopy, flexible; with removal of tumor(s), polyp(s), or other lesion(s) by snare technique Diagnosis Code(s): --- Professional --- Z12.11, Encounter for screening for malignantneoplasm of colon D12.2, Benign neoplasm of ascending colon K64.8, Other hemorrhoids --- Technical --- Z12.11, Encounter for screening for malignantneoplasm of colon D12.2, Benign neoplasm of ascending colon K64.8, Other hemorrhoids CPT copyright 2021 [employer]. All rights reserved. The codes documented in this report are preliminary and upon kettle hand reviewmay be revised to meet current compliance requirements. Procedure Date: 03/21/2023 1:41:35 PM [address] [place] [address] Zenia Rinaldi NP GI PROCEDURE ORDERABLES F inal Result from Last 3 Months or Most Recently Relevant to Health Maintenance Insurance [employer] SAFETY NET PARTIAL Member Subscriber Plan / Payer (Ef fective 2023-Present) Name:GonsalesMelina tapia Relation to Subscriber:Self Name:Melina Gonsales Payer ID:Not on file Group ID:Not on file Type:Medicaid Address: [address] PCP [facility] NET PARTIAL [place] NON NSPG PCP [place] [facility] NET PARTIAL [facility] NON NSPG PCP S[place] [facility] NET PARTIAL [place] NON NSPG PCP [facility] [facility] NET PARTIAL [facility] NON NSPG PCP S[place] [facility] NET PARTIAL [employer] NON NSPG PCP [facility] Care Teams Rec Therapist Relationship Specialty Start Date End Date Zenia Rinaldi NP [address] [place] [address] PCP - General Family Medicine 01/12/22 Additional Source Comments The information contained in this document represents components of the legal health record. It is not the complete legal health record.[facility]
--- OUTSIDE RECORDS SUMMARY | 2025-09-21 16:16 | XMS_ITS | Encounter Summary ---
Author Organization [facility] Address [address] [place] [address] Phone Care Team Providers Care Air Cargo Specialist Name Role Phone Farheen Velazquez MD Unavailable [phone] Pcp, Unknown Primary Care Provider UnavailCarole Quintero INPUT OUTPUT CLERK Primary Care Provid er Zenia Rinaldi INPUT OUTPUT CLERK Primary Care Provider [phone] Sunny Friend MD Unavailable [phone] Encounter Details Date Type Department Care Team (Latest Contact Info) Description 05/19/2021 Transcribe Orders Virtual Department [address] [place] [address] Jhonathan Matias MD [address] [place] [address] [email or web address] Dysphagia, unspecified type (Primary [...] min. 32 sec; 781 IMAGES/FRAMES POS - [id number] Narrative 01/11/2022 11:43 AM EST COMPARISON: 10/27/2012. [...] min. 32 sec; 781 IMAGES/FRAMES POS - [id number] us Jhonathan Matias MD IMG FL EXAMS Final Result documented in this encounter Visit Diagnoses Diagnosis Dysphagia, unspecified type- Primary Dysphagia, unspecified type- Primary documented in this encounter Care Teams Air Cargo Specialist Relationship Specialty Start Date End Date Pcp, Unknown PCP - General 04/12/21 12/13/21 Carole Kelly NP [address] [place] [address] [email or web address] PCP - General Family Medicine 12/14/21 01/11/22 Zenia Rinaldi NP [address] [place] [address] PCP - General Family Medicine 01/12/22 Farheen Velazquez MD [address] [place] [address] [email or web address] Insurance Assigned Provider 01/28/21 09/01/22 Sunny Friend MD [address] [place] [phone] Insurance Assigned Provider 09/01/22 08/03/23 documented as of this encounter Additional Source Comments The information contained in this document represents components of the legal health record. It is not the complete legal health record.[facility]
--- OUTSIDE RECORDS SUMMARY | 2025-09-21 16:16 | XMS_ITS | Encounter Summary ---
Author Organization [email or web address] Address [address] [place] [address] [place] [address] Care Team Providers Care Mold Parter Name Role Phone Charles Cope Unassigned Primary [...] on filedocumented in this encounter Care Teams Mold Parter Relationship Specialty Start Date End Date Charles Cope Unassigned PCP - General Family Medicine 03/25/23 documented as of this encounter
== END 2025-09-21 12:54 | disposition home or self-care (01) ==
LOC: HO.MAMMO 12:53
PROVIDERS: PCP Nurse Practitioner Family; Visit Provider Nurse Practitioner Family
DX: N64.89 Other specified disorders of breast (principal)
CPT/HCPCS: 76642; 77062; 77066

== ENCOUNTER → 2025-09-21 13:00 | Outpatient (BNV) | payer OTHER, SELFPAY | PROVIDERS: PCP Nurse Practitioner Family; Visit Provider Radiology Body Imaging | DX: R92.8 Other abnormal and inconclusive findings on diagnostic imaging of breast (principal) | CPT/HCPCS: 76642; 77062; 77066 ==